=== PATIENT | female | born 1955 | race Caucasian/White ===

== ENCOUNTER 2024-06-03 14:49 | Inpatient (IN) | payer OTHER ==
[~2024-06-03] VITALS: Ht 160 cm; Wt 46.7 kg
--- NOTE | 2024-06-03 15:30 | EKG ---
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
[2024-06-03 15:33] LABS: BASOPHILS # (AUTO) 0.12 K/uL (0.00-0.20); BASOPHILS % (AUTO) 1.2 % (0.0-5.0); EOSINOPHILS # (AUTO) 0.32 K/uL (0.00-0.70); EOSINOPHILS % (AUTO) 3.1 % (0.0-8.0); HEMATOCRIT 42.1 % (36-48); IMMATURE GRANULOCYTE ABSOLUTE 0.03 K/uL (0-1); LYMPHOCYTES # (AUTO) 2.8 K/uL (1.0-4.8); LYMPHOCYTES % (AUTO) 27.1 % (21.0-51.0); MEAN CORPUSCULAR HEMOGLOBIN 30.8 pg (27.0-33.0); MEAN CORPUSCULAR HGB CONC 32.1 g/dL (32.0-36.0); MEAN CORPUSCULAR VOLUME 96.1 fL (79-99); MONOCYTES # (AUTO) 0.7 K/uL (0.1-1.0); MONOCYTES % (AUTO) 7.1 % (3.0-13.0); NEUTROPHILS # (AUTO) 6.3 K/uL (1.8-7.7); NEUTROPHILS % (AUTO) 61.2 % (40.0-77.0); PLATELET COUNT (AUTO) 240 K/uL (130-400); RED BLOOD CELL COUNT(AUTO) 4.38 MIL/uL (4.00-5.50); RED CELL DISTRIBUTION WIDTH 13.4 % (11.0-15.5); WHITE BLOOD COUNT (AUTO) 10.3 K/uL (4.8-10.8)
--- NOTE | 2024-06-03 15:40 | ERN ---
ED Note History of Present Illness Stated Complaint: ABNORMAL EKG Chief Complaint: Abnormal Labs Time Seen by MD: 15:00 Dictation: PATIENT IS A 68-YEAR-OLD FEMALE COMING IN WITH PALPITATIONS ONSET THIS MORNING. SHE WAS SEEN BY HER PRIMARY CARE DOCTOR, IDENTIFIED WITH AFIB WITH A RVR IN DIRECTED IMMEDIATELY TO THE EMERGENCY ROOM. NO CHEST PAIN NO BACK PAIN NO SOB. SHE STATES SHE HAS NEVER HAD ATRIAL FIBRILLATION. Allergies: Coded Allergies: No Known Drug Allergies (Unverified Allergy, Unknown, 06/03/24) Past Medical History Past Medical History: Diabetes-Type II, Heart Disease, Hypertension Surgical History: Other Surgical History Other: ORAL SURGERY History: Not Applicable RN Note Reviewed/Agreed w/PFSH: Yes Review of System Dictation CONSTITUTIONAL: NEGATIVE EXCEPT FOR HPI HEAD/FACE: NEGATIVE EXCEPT FOR HPI EENT: NEGATIVE EXCEPT FOR HPI RESPIRATORY: NEGATIVE EXCEPT FOR HPI PALPITATIONS GASTROINTESTINAL/ABDOMINAL: NEGATIVE EXCEPT FOR HPI GENITOURINARY: NEGATIVE EXCEPT FOR HPI MUSCULOSKELETAL: NEGATIVE EXCEPT FOR HPI INTEGUMENTARY: NEGATIVE EXCEPT FOR HPI NEUROLOGICAL/PSYCH: NEGATIVE EXCEPT FOR HPI HEMATOLOGIC/LYMPHATIC: NEGATIVE EXCEPT FOR HPI ALL SYSTEMS NEGATIVE, EXCEPT NOTED ABOVE. 13 POINT REVIEW OF SYSTEMS ASSESSED AND ALL NEGATIVE EXCEPT FOR ABOVE. Initial Vital Sign VS Vital Signs Date Time Temp Pulse Resp B/P (MAP) Pulse Ox O2 Delivery O2 Flow Rate FiO2 06/03/24 14:54 97.5 124 16 162/101 99 Room Air 06/03/24 15:22 0 21 Physical Exam Dictation VITAL SIGNS REVIEWED GENERAL APPEARANCE: ALERT, ORIENTED X 3, NO ACUTE DISTRESS, WELL DEVELOPED, NOURISHED. HEAD AND FACE: NON-TRAUMATIC. EYES: PERRL, PINK CONJUNCTIVAS, EYELID NO TRAUMA, ANTERIOR CHAMBER WITH ARCUS SENILIS. EARS: PINNAS INTACT AND NO SIGNS OF TRAUMA OR ERYTHEMA EAR CANALS CLEAR AND NO DISCHARGE TM NO ERYTHEMA NOSE: NO DISCHARGE, NO BLEEDING. OROPHARYNX: MOUTH NORMAL, TONGUE PINK, PHARYNX CLEAR,NO ERYTHEMA, TONSILS NO EXUDATES, NO ABSCESSES NOTED, MUCOUS MEMBRANE MOIST NECK: SUPPLE, NON-TENDER, NO THYROMEGALY, NO MASSES, NO JVD, NO BRUITS BREAST:DEFERRED CHEST:NO TENDERNESS, NO CREPITUS, NO PARADOXICAL MOVEMENT, NO RETRACTIONS LUNGS:CLEAR, WELL-VENTILATED, SYMMETRIC, NO RALES, NO WHEEZING, NO RHONCHI, NO STRIDOR, GOOD BREATH SOUNDS BILATERALLY HEART: IRREGULAR IRREGULAR REGULAR TACHYCARDIC, NO MURMUR, NO GALLOPS VASCULAR: NO PERIPHERAL EDEMA, ABDOMEN: SOFT, POSITIVE BOWEL SOUNDS, NONDISTENDED, NO GUARDING, NONTENDER, NO REBOUND, NO MASSES NO HEPATOMEGALY, NO SPLENOMEGALY, NO FELIX'S SIGN, NO HERNIAS. RECTAL: DEFERRED GENITAL: DEFERRED NEUROLOGICAL: NORMAL SPEECH, MOTOR FUNCTION INTACT, SENSORY FUNCTION INTACT MUSCULOSKELETAL: NECK NONTENDER, FULL RANGE OF MOTION, BACK NONTENDER, FULL RANGE OF MOTION, EXTREMITIES: NONTENDER, FULL RANGE OF MOTION SKIN: COLOR PINK, DRY, NO TURGOR, NO RASH, NO LACERATIONS, NO ABRASIONS, NO CONTUSIONS. LYMPHATIC: DEFERRED Results (Laboratory/Radiology) Laboratory/Radiology Laboratory Tests Test 06/03/24 15:25 White Blood Count 10.3 K/uL (4.8-10.8) Red Blood Count 4.38 MIL/uL (4.00-5.50) Hemoglobin 13.5 g/dL (12.0-16.0) Hematocrit 42.1 % (36-48) Mean Corpuscular Volume 96.1 fL (79-99) Mean Corpuscular Hemoglobin 30.8 pg (27.0-33.0) Mean Corpuscular Hemoglobin Concent 32.1 g/dL (32.0-36.0) Red Cell Distribution Width 13.4 % (11.0-15.5) Platelet Count 240 K/uL (130-400) Mean Platelet Volume 11.0 fL (7.5-10.5) H Immature Granulocyte % (Auto) 0.3 % (0-1) Neutrophils (%) (Auto) 61.2 % (40.0-77.0) Lymphocytes (%) (Auto) 27.1 % (21.0-51.0) Monocytes (%) (Auto) 7.1 % (3.0-13.0) Eosinophils (%) (Auto) 3.1 % (0.0-8.0) Basophils (%) (Auto) 1.2 % (0.0-5.0) Neutrophils # (Auto) 6.3 K/uL (1.8-7.7) Lymphocytes # (Auto) 2.8 K/uL (1.0-4.8) Monocytes # (Auto) 0.7 K/uL (0.1-1.0) Eosinophils # (Auto) 0.32 K/uL (0.00-0.70) Basophils # (Auto) 0.12 K/uL (0.00-0.20) Absolute Immature Granulocyte (auto 0.03 K/uL (0-1) Nucleated Red Blood Cells 0.0 % (0.0-0.19) Prothrombin Time 11.9 SEC (9.6-11.6) H Prothromb Time International Ratio 1.07 (0.85-1.15) Activated Partial Thromboplast Time 27.6 SEC (26.3-35.5) Sodium Level 138 mmol/L (136-145) Potassium Level 3.9 mmol/L (3.5-5.1) Chloride Level 103 mmol/L (101-111) Carbon Dioxide Level 29 mmol/L (21-32) Blood Urea Nitrogen 18 mg/dL (7-18) Creatinine 0.6 mg/dL (0.5-1.0) Glomerular Filtration Rate Calc 97 mL/min (>90) Random Glucose 109 mg/dL (70-105) H Total Calcium 9.4 mg/dL (8.5-10.1) Total Bilirubin 0.3 mg/dL (0.2-1.0) Aspartate Amino Transf (AST/SGOT) 13 U/L (10-37) Alanine Aminotransferase (ALT/SGPT) 13 U/L (12-78) Alkaline Phosphatase 82 U/L (50-136) Troponin I High Sensitivity 14 ng/L (4-50) B-Type Natriuretic Peptide 79 pg/mL (0-100) Total Protein 7.3 g/dL (6.0-8.3) Albumin 3.6 g/dL (3.5-5.0) Labs Reviewed?: Yes EKG Comment: Test Date: 2024-06-03 Test Time: 15:24:57 Pat Name: JOSE CARRINGTON Department: [facility] Room: Gender: Female 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 ED Course ED Course Orders Procedure Category Date Status Time Cbc With Differential LAB 06/03/24 Complete 14:58 Comprehensive LAB 06/03/24 Complete Metabolic Panel 14:58 12 Lead Ekg Tracing- EKG 06/03/24 Complete Technical 14:58 Troponin I High LAB 06/03/24 Complete Sensitivity 14:58 Pt And Ptt LAB 06/03/24 Complete 15:34 B-Type Natriuretic LAB 06/03/24 Complete Peptide 15:34 Diltiazem 25mg Inj PHA 06/03/24 Complete (Cardizem 25mg Inj) 16:00 Diltiazem 125 Mg/25 PHA 06/03/24 In Process Ml Inj (Diltiazem 12 17:00 Cardiology Consult CONPHYSVC 06/03/24 Transmitted 16:55 Metoprolol Tartrate PHA 06/03/24 In Process 50 Mg Tab (Lopressor 21:00 Heparin 25,000 PHA 06/03/24 In Process Units/250ml D5w 17:30 Current Medications Medications (Trade) Dose Ordered Sig/Ava Route PRN Reason Start Time Stop Time Status Last Admin Dose Admin Diltiazem HCl (CARDIzem 25MG INJ) 9.44 mg ONCE ONCE IVP 06/03/24 16:00 06/03/24 16:01 DC 06/03/24 15:52 Diltiazem HCl 125 mg/Sodium Chloride 125 ml @ 0 mls/hr PROTOCOL IV 06/03/24 17:00 07/03/24 16:59 Heparin Sodium/ Dextrose 250 ml @ 0 mls/hr PROTOCOL IV 06/03/24 17:30 07/03/24 17:29 Metoprolol Tartrate (loprESSOR) 50 mg BID PO 06/03/24 21:00 07/03/24 20:59 Vital Signs Date Time Temp Pulse Resp B/P (MAP) Pulse Ox O2 Delivery O2 Flow Rate FiO2 06/03/24 16:34 97.5 136 18 124/82 99 Room Air* 0 06/03/24 16:00 97.5 104 14 124/82 99 Room Air* 0 21 06/03/24 15:56 97.5 115 16 124/82 99 Room Air* 0 21 06/03/24 15:52 150/80 06/03/24 15:22 144 20 171/111 94 Room Air* 0 21 06/03/24 14:54 97.5 124 16 162/101 99 Room Air 1607 PATIENT NOW IN A ATRIAL FIBRILLATION WITH A CONTROLLED RATE VENTRICULAR RESPONSE ANYWHERE SIXTEEN 50, PATIENT NOW BACK IN ATRIAL FIBRILLATION WITH RAPID VENTRICULAR RESPONSE WORKUP IS NEGATIVE EXCEPT FOR AFIB RVR SHE WILL BE STARTED ON DILTIAZEM DRIP AND WE WILL PAGED DR. WILLIAM DENNIS [employer] AND HAVE PATIENT ADMITTED S.1706/SPOKE WITH DR. WILLIAM DENNIS [employer] AND REVIEWED EKG LABS. HE SAID TO GIVE HER LOPRESSOR5 MG IV NOW AND GIVE, LOPRESSOR 50 MG B.I.D. AND START HEPARIN DRIP. HE AGREED TO SEE PATIENT IN CONSULTATION. 1720/SPOKE WITH DR. BRODERICK AND REVIEWED LABS EKG CHEST X-RAY AND INTERVENTIONS FOR AFIB WITH A RVR TO INCLUDE 1ST DOSE OF DILTIAZEM WHICH FAILED, THEN SPEAKING WITH DR. DENNIS WE WILL GIVE LOPRESSOR5 MG, LOPRESSOR 50 MG B.I.D., WE WILL START HEPARIN DRIP. HE AGREED TO ADMIT PATIENT. Medical Decision Making MDM MDM: DIFFERENTIAL DIAGNOSIS: AFIB WITH A RVR/ACS/AMI/ELECTROLYTE IMBALANCE/DEHYDRATION/PNEUMONIA RATIONALE: TESTS CONSIDERED AND ORDERED SECONDARY TO SHARED DECISION MAKING INCLUDE: LABS, ECG AND RADIOLOGY PREVIOUS OUTSIDE RECORDS REVIEWED: OLD ER VISITS. RISK OF COMPLICATION AND/OR MORBIDITY OR MORTALITY OF PATIENT MANAGEMENT: MODERATE MEDICATIONS-PER MEDICATION RECONCILIATION NEED FOR HOSPITALIZATION: PATIENT DOES MEET CRITERIA FOR HOSPITALIZATION. PATIENT WILL NEED CARDIOLOGY CONSULTATION AND CONTROL OF HER ATRIAL FIBRILLATION NEED FOR EMERGENCY MAJOR/MINOR SURGERY: NO THERE ARE NO SOCIAL CONCERNS WITH THIS PATIENT. PRESCRIPTION DRUG MANAGEMENT PRESCRIPTIONS WILL INCLUDE SYMPTOMATIC CARE PATIENT'S PRIOR EXTERNAL MEDICAL RECORDS FROM OTHER ER VISITS WERE REVIEWED BY ME INDICATED. PRIOR TESTING AND RESULTS FROM PREVIOUS VISITS WERE REVIEWED. PRIOR TESTS WERE TAKEN INTO ACCOUNT WITH MEDICAL DECISION MAKING AND RESOURCE UTILIZATION, INDEPENDENT HISTORIAN/HISTORIANS WERE USED TO OBTAIN COMPLETE MEDICAL HISTORY. I INDEPENDENTLY INTERPRETED THE TEST THAT WERE PERFORMED, RESULTS WERE REVIEWED BY ME AND CONSIDERED FINDINGS ON RADIOLOGY IF ORDERED. MEDICAL MANAGEMENT AND EXAMINATION INTERPRETATION DISCUSSIONS WERE HAD BY ME WITH OTHER QUALIFIED HEALTHCARE PROFESSIONALS INDICATED FOR THE PATIENT'S CARE. DX & DISP Disposition: Inpatient Departure Impression: Primary Impression: Atrial fibrillation with rapid ventricular response Additional Impression: Hyperglycemia Condition: Stable Referrals: MOUNIKA REEDER MD (PCP) Time of Disposition: 16:56 I have reviewed the case, and I agree with, Diagnosis and Plan CARINE CORDOBA NP Jun 03, 2024 15:40
[2024-06-03 15:43] LABS: CREATININE 0.6 mg/dL (0.5-1.0); POTASSIUM 3.9 mmol/L (3.5-5.1)
[2024-06-03] MEDS: dilTIAZem 25MG INJ IVP ONE (15:52)
[2024-06-03 15:53] LABS: ALBUMIN 3.6 g/dL (3.5-5.0); BILIRUBIN,TOTAL 0.3 mg/dL (0.2-1.0); TOTAL PROTEIN, SERUM 7.3 g/dL (6.0-8.3)
[2024-06-03 16:15] LABS: INR 1.07 (0.85-1.15); PROTHROMBIN TIME 11.9 SEC (9.6-11.6)
[2024-06-03 16:17] LABS: PARTIAL THROMBOPLASTIN TIME 27.6 SEC (26.3-35.5)
[2024-06-03] MEDS ORDERED: dilTIAZem 125 MG/25 ML INJ 125 MG in 0.9%NACL 100ML 100 ML IV SCH (17:00)
[2024-06-03] MEDS: metoPROLOL tartRATE 50 MG TAB PO SCH (17:29)
[2024-06-03] MEDS: HEParin 25,000 UNITS/250ML D5W 250 ML IV SCH (17:43)
[2024-06-03] MEDS: metoPROLOL tartRATE 1 MG/ML 5ML VIAL IV ONE (17:52)
[2024-06-03] MEDS: HEParin 5,000 UNIT VIAL SQ SCH (17:53)
[2024-06-03] MEDS ORDERED: PoTASSium chloRIDE 20MEQ/100ML 100 ML IV PRN (18:00)
[2024-06-03] MEDS ORDERED: PoTASSium chloRIDE 20MEQ ER 20 MEQ ERTAB PO PRN (18:00)
[2024-06-03] MEDS ORDERED: PoTASSium chl 10% ELIXIR 20MEQ 20 MEQ/15 ML UDCUP PO PRN (18:00)
[2024-06-03] MEDS ORDERED: acetaMINOPHEN 500 MG TABLET PO PRN (18:00)
[2024-06-03 18:21] LABS: HEMOGLOBIN A1C 6.2 % (4.0-6.0)
--- NOTE | 2024-06-03 18:47 | NUR ---
HOLD CARDIZEM IV BAG NOW, FIRST TRY LOPRESSOR MEDICATION FIRST, CONTINE TO MONITOR HEART RATE. PER CARINE Kelly NP
--- NOTE | 2024-06-03 19:10 | HP ---
[facility] HISTORY [facility] PHYSICAL Date of Service: Jun 03, 2024 Time of Service: 19:00 HISTORY OF PRESENT ILLNESS: Date of service: 06/03/2024 This is a 68-year-old female with past medical history of hyperlipidemia, diabetes mellitus type 2 presented to the hospital secondary to palpitations. Patient states she noted that she was having palpitations today. She went to see her primary care provider where she was noted to be in AFib RVR. She was sent to hospital for further evaluation. Patient currently denies any chest pain, shortness of breath, nausea, vomiting, abdominal pain, dysuria. She denied any previous history of palpitations. Denied any syncopal episode at rest or with exertion. She denied any previous cardiac history. He denied any headaches, neck pain. Denied any upper or lower extremity weakness. In the ED labs were notable for white count of 10.3, hemoglobin was 13.5, platelet count was 240k, sodium was 138, potassium was 3.9, creatinine was 0.6, glucose was 109 In the ED patient was noted to be in AFib RVR with heart rate in the 130s to 140s. Patient was initially given Cardizem without improvement. ED provider yue valencia to Cardiology who recommended given IV metoprolol 5 mg, starting patient on metoprolol 50 mg b.i.d. Also recommended patient to be started on heparin gtt REVIEW OF SYSTEMS CONSTITUTIONAL: Denies fevers, chills, or night sweats. No unintentional weight loss reported. NEUROLOGICAL: Denies headache, amaurosis fugax, motor weakness, sensory deficit, vertigo/spinning sensation, gait abnormalities, or tremors. ENT: No hearing loss, otalgia, otorrhea, rhinitis, rhinorrhea, hoarseness, or sore throat. CARDIOVASCULAR: Positive for palpitations. Denied any chest pain, orthopnea, PND PULMONARY: Denies any shortness of breath, cough, phlegm/sputum, hemoptysis, pleuritic chest pain. GASTROINTESTINAL: Denies any type of dysphagia to either liquids or solids. Denies nausea, vomiting, pyrosis, early satiety, abdominal pain, diarrhea, constipation, or changes in stool consistency or caliber. Denies coffee-ground emesis, hematemesis, hematochezia, or melanotic stools. GENITOURINARY: Denies frequency, urgency, nocturia, hematuria or incontinence (Storage/Irritative symptoms.) Low urinary stream, straining to void, urinary intermittency or hesitancy, splitting of the voiding stream, terminal dribbling. ENDOCRINOLOGIC: Denies polyuria, polydipsia, polyphagia or heat/cold intolerances. HEMATOLOGIC: Denies thrombophilia/previous clots, or coagulopathy/bleeding disorders. ONCOLOGIC: Denies personal history of malignancy. DERMATOLOGIC: Denies rashes or pruritus. PSYCHIATRIC: Denies any suicidal or homicidal ideation. Denies hallucinations. PAST MEDICAL HISTORY: Hyperlipidemia, diabetes mellitus type 2 PAST SURGICAL HISTORY: History of oral surgery PAST SOCIAL HISTORY: Denied any smoking, alcohol, drug use FAMILY HISTORY: Denied any pertinent family history Coded Allergies: No Known Drug Allergies (Unverified Allergy, Unknown, 06/03/24) PHYSICAL EXAM GENERAL APPEARANCE: The patient is awake, alert, and oriented, in no acute cardiopulmonary distress. NEUROLOGICAL: Cranial nerves II-XII grossly intact. Motor is 5/5 in bilateral upper and lower extremities proximal to distal. No sensory deficits. HEENT: Face is symmetric. Pupils are equal and reactive. Extraocular movements are intact. NECK: Supple. No JVD. No thyromegaly. No submental, submandibular, pre-/postauricular, occipital or supraclavicular lymphadenopathy. CHEST: Normal chest expansion. No Telemetry. LUNGS: Absence of any rales, rhonchi or any wheezing. CARDIOVASCULAR: Irregularly irregular. S1 and S2 normal. No appreciable rubs, murmurs or gallops. ABDOMEN: Soft, nontender, and nondistended. There is no rebound, voluntary guarding, or rigidity. : Deferred. No Marquez. EXTREMITIES: Non-edematous and not cyanotic. No clubbing. Good capillary refill. SKIN: No skin breakdown. Vital Sign (Last 24 Hours) 06/03/24 18:47 Temp 97.5 Pulse 89 Resp 25 B/P (MAP) 114/88 Pulse Ox 97 O2 Delivery Room Air* O2 Flow Rate 0 FiO2 21 LABS: Laboratory: Test 06/03/24 15:25 Range/Units White Blood Count 10.3 4.8-10.8 K/uL Red Blood Count 4.38 4.00-5.50 MIL/uL Hemoglobin 13.5 12.0-16.0 g/dL Hematocrit 42.1 36-48 % Mean Corpuscular Volume 96.1 79-99 fL Mean Corpuscular Hemoglobin 30.8 27.0-33.0 pg Mean Corpuscular Hemoglobin Concent 32.1 32.0-36.0 g/dL Red Cell Distribution Width 13.4 11.0-15.5 % Platelet Count 240 130-400 K/uL Mean Platelet Volume 11.0 H 7.5-10.5 fL Immature Granulocyte % (Auto) 0.3 0-1 % Neutrophils (%) (Auto) 61.2 40.0-77.0 % Lymphocytes (%) (Auto) 27.1 21.0-51.0 % Monocytes (%) (Auto) 7.1 3.0-13.0 % Eosinophils (%) (Auto) 3.1 0.0-8.0 % Basophils (%) (Auto) 1.2 0.0-5.0 % Neutrophils # (Auto) 6.3 1.8-7.7 K/uL Lymphocytes # (Auto) 2.8 1.0-4.8 K/uL Monocytes # (Auto) 0.7 0.1-1.0 K/uL Eosinophils # (Auto) 0.32 0.00-0.70 K/uL Basophils # (Auto) 0.12 0.00-0.20 K/uL Absolute Immature Granulocyte (auto 0.03 0-1 K/uL Nucleated Red Blood Cells 0.0 0.0-0.19 % Prothrombin Time 11.9 H 9.6-11.6 SEC Prothromb Time International Ratio 1.07 0.85-1.15 Activated Partial Thromboplast Time 27.6 26.3-35.5 SEC Sodium Level 138 136-145 mmol/L Potassium Level 3.9 3.5-5.1 mmol/L Chloride Level 103 101-111 mmol/L Carbon Dioxide Level 29 21-32 mmol/L Blood Urea Nitrogen 18 7-18 mg/dL Creatinine 0.6 0.5-1.0 mg/dL Glomerular Filtration Rate Calc 97 >90 mL/min Random Glucose 109 H 70-105 mg/dL Hemoglobin A1c 6.2 H 4.0-6.0 % Estimated Average Glucose (eAG) 131 H 70-126 mg/dL Total Calcium 9.4 8.5-10.1 mg/dL Total Bilirubin 0.3 0.2-1.0 mg/dL Aspartate Amino Transf (AST/SGOT) 13 10-37 U/L Alanine Aminotransferase (ALT/SGPT) 13 12-78 U/L Alkaline Phosphatase 82 50-136 U/L Troponin I High Sensitivity 14 4-50 ng/L B-Type Natriuretic Peptide 79 0-100 pg/mL Total Protein 7.3 6.0-8.3 g/dL Albumin 3.6 3.5-5.0 g/dL Procalcitonin < 0.05 L 0.05-0.5 ng/mL Thyroid Stimulating Hormone (TSH) 3.27 0.36-3.74 uIU/mL Current Medications Medications (Trade) Dose Ordered Sig/Ava Route PRN Reason Start Time Stop Time Status Last Admin Dose Admin Acetaminophen (TYLenol 500MG TAB) 500 mg Q6H PRN PO MILD PAIN (1-3) 06/03/24 18:00 07/03/24 17:59 Diltiazem HCl 125 mg/Sodium Chloride 125 ml @ 0 mls/hr PROTOCOL IV 06/03/24 17:00 07/03/24 16:59 Famotidine (Pepcid 20mg Vial) 20 mg BID IV 06/03/24 21:00 07/03/24 20:59 Heparin Sodium (Porcine) (HEParin 5,000 UNIT VIAL) 7,500 unit ONCE SQ 06/03/24 18:00 07/03/24 17:59 06/03/24 17:53 7,500 UNIT Heparin Sodium/ Dextrose 250 ml @ 0 mls/hr PROTOCOL IV 06/03/24 17:30 07/03/24 17:29 06/03/24 17:43 8 MLS/HR Magnesium Sulfate 50 ml @ 0 mls/hr PROTOCOL PRN IV HYPOMAGNESEMIA 06/03/24 18:00 07/03/24 17:59 Metoprolol Tartrate (loprESSOR) 50 mg BID PO 06/03/24 17:30 07/03/24 17:29 06/03/24 17:29 50 MG Metoprolol Tartrate (loprESSOR) 50 mg BID PO 06/03/24 21:00 06/03/24 17:24 DC Potassium Chloride 100 ml @ 100 mls/hr AD PRN IV POTASSIUM PROTOCOL 06/03/24 18:00 07/03/24 17:59 Potassium Chloride (K-Dur/Klor-Con 20meq) 20 meq AD PRN PO POTASSIUM PROTOCOL 06/03/24 18:00 07/03/24 17:59 Potassium Chloride (KCl 10% Elixir 20meq/15ml) 20 meq AD PRN PO POTASSIUM PROTOCOL 06/03/24 18:00 07/03/24 17:59 DIAGNOSTICS / RADIOLOGY: [ ] ASSESSMENT: New onset paroxysmal atrial fibrillation with RVR POA CHADSVASC of at least 3 Hyperlipidemia History of diabetes mellitus type 2 PLAN: - patient to be admitted to PCCU -in reference to atrial fibrillation with RVR. Patient has been started on metoprolol 50 mg b.i.d. we will keep potassium greater than four and magnesium greater than two. Cardiology consultation was requested. Patient to continue on heparin drip gtt. Obtain a echocardiogram -check TSH, A1c -obtain home medications which will be reconciled once available -further orders per hospitalization course Advanced Care Planning Which of the following were discussed: Hospice care: Yes __ No _x_ Therapeutic options: Yes __ No __ Advance directives: Yes __ No __ Other discussions: pt is full code Discussed with who?: patient (Patient, family or surrogates) Voluntary nature of this service was explained to the patient? Yes _x_ No __ Amount of time spent: 25 minutes CAROLYN Shook MD, MD Jun 03, 2024 19:09
--- NOTE | 2024-06-03 19:14 | NUR ---
TOOK OVER PATIENT AT THIS TIME
--- NOTE | 2024-06-03 20:38 | NUR ---
NO HOME MEDICATIONS BROUGHT IN AT THIS TIME, PATIENT WILL HAVE FAMILY BRING THEM IN THE MORNING
[2024-06-03 20:50] VITALS: BP 128/69; PULSE 63; RESP 19; TEMP 97.8
[2024-06-03] MEDS ORDERED: metoPROLOL tartRATE 50 MG TAB PO SCH (21:00)
[2024-06-03] MEDS: INSULIN humuLIN R 100 UNIT/ML 3ML SQ SCH (21:00)
--- NOTE | 2024-06-03 21:00 | NUR ---
INITIAL ASSESSMENT PATIENT RECEIVED FROM ER VIA STRETCHER. PATIENT BEING ADMITTED FOR AFIB WITH RVR AND HYPERGLYCEMIA UNDER THE CARE OF . PATIENT AWAKE AND ALERT. VOICES ALL NEEDS. NO COMPLAINTS OF PAIN VOICED AT THIS TIME. VITALS STABLE. AFEBRILE. TOLERATING HEPARIN GTT AT THIS TIME. GAME ROOM ATTENDANT IN PLACE. PATIENT CONTINUES WITH AFIB IN THE 80s. RESP EVEN AND UNLABORED. NO SOB NOTED. ON ROOM AIR. ORIENTATED TO ROOM AND HOSPITAL. NO SKIN BREAKDOWN NOTED. IN GOOD SPIRITS. CALL LIGHT WITHIN REACH. NO SIGNS OF DISTRESS NOTED UPON EXITING THE ROOM. Addendum: 06/04/24 at 0735 by GRZEGORZ DAVIS RN RN Amended: Links added.
[2024-06-03] MEDS ORDERED: METF-446 PO (22:28)
[2024-06-03] MEDS ORDERED: ATOR10TA69 PO (22:28)
[2024-06-03] MEDS: FAMOTIDINE 20MG VIAL IV SCH (23:16)
[2024-06-04] VITALS (10 sets, daily range): BP systolic 124–148; BP diastolic 75–94; PULSE 67–97; RESP 16–19; TEMP 97.4–98.3; O2SAT 97–98
[2024-06-04 03:26] LABS: CREATININE 0.7 mg/dL (0.5-1.0); MAGNESIUM 1.6 mg/dL (1.80-2.40); POTASSIUM 3.9 mmol/L (3.5-5.1)
[2024-06-04 03:29] LABS: BASOPHILS # (AUTO) 0.13 K/uL (0.00-0.20); BASOPHILS % (AUTO) 1.1 % (0.0-5.0); EOSINOPHILS # (AUTO) 0.45 K/uL (0.00-0.70); EOSINOPHILS % (AUTO) 3.7 % (0.0-8.0); IMMATURE GRANULOCYTE ABSOLUTE 0.02 K/uL (0-1); LYMPHOCYTES # (AUTO) 4.3 K/uL (1.0-4.8); LYMPHOCYTES % (AUTO) 34.8 % (21.0-51.0); MEAN CORPUSCULAR HGB CONC 32.5 g/dL (32.0-36.0); MEAN CORPUSCULAR VOLUME 95.2 fL (79-99); MONOCYTES # (AUTO) 0.9 K/uL (0.1-1.0); MONOCYTES % (AUTO) 7.3 % (3.0-13.0); NEUTROPHILS # (AUTO) 6.5 K/uL (1.8-7.7); NEUTROPHILS % (AUTO) 52.9 % (40.0-77.0); PLATELET COUNT (AUTO) 255 K/uL (130-400); RED CELL DISTRIBUTION WIDTH 13.4 % (11.0-15.5); WHITE BLOOD COUNT (AUTO) 12.3 K/uL (4.8-10.8)
--- NOTE | 2024-06-04 08:00 | NUR ---
ptt 113.8. heparin drip running at 15 u/kg/hr. held for 1 hour then dropped to 13 units/kg/hr.
[2024-06-04] MEDS: metoPROLOL tartRATE 50 MG TAB PO SCH (09:00)
[2024-06-04] MEDS: APIXaban 5 MG TABLET PO SCH (10:42)
--- NOTE | 2024-06-04 10:57 | CONS ---
[facility] CONSULTATION NOTE Date Patient Seen: Jun 04, 2024 Time of Visit: 10:43 Reason for Consultation: [Atrial fibrillation ] History of Present Illness: [ 68-year-old female with past medical history of hyperlipidemia, recently diagnosed diabetes mellitus type 2 presented to the hospital secondary to palpitations. Patient states she noted that she was having palpitations today. She went to see her primary care provider where she was noted to be in AFib RVR. She was sent to hospital for further evaluation. On initial evaluation the patient was endorsing mild jitteriness and feeling faint , she denies any palpitations , chest pain or dyspnea, presenting ECG showed Afib with RVR in the 120-130s , telemetry currently shows atrial fibrillation , in the low 100s , she denies any prior history of SC/CAD/stroke , never smoker , no alcohol use. Cardiology was consulted for Atrial fibrillation. ] Past Medical History: [Refer to chart ] Past Surgical History: [ Refer to HPI] Family History: [Refer to HPI ] Social History: [ Refer to HPI] Habits: [Never] smoker. [Denies] alcohol consumption. [Denies] illicit drug use Review of Systems: A review of 12 point system was negative set per HPI Physical Examination: GENERAL: [No acute distress.] HEAD: [Normal with no signs of head trauma.] EYES: [PERRLA, EOMI, conjunctiva and sclera normal.] ENT: [Hearing grossly intact, normal oropharynx.] NECK: [Supple without JVD. There is no tenderness, lymphadenopathy, or masses. No thyromegaly. Normal carotid upstrokes without bruits.] LUNGS: [Clear breath sounds bilaterally. . No wheezes, or rhonchi.] HEART: Irregularly irregular rate. Normal S1 and S2 without mumurs, gallop or rub.] VASC: [Peripheral pulses +2 bilaterally.] ABD: [Bowel sounds normal, soft, nontender, no masses, no organomegaly. No audible bruits.] : [Not examined] LYMPH: [No lymphadenopathy noted.] EXT: [No clubbing, cyanosis or edema.] SKIN: [No rashes or lesions noted.] NEURO: [Awake, alert, and oriented x3. No focal sensory or strength deficits noted.] Vital Signs (last 8hr) Date Time Temp Pulse Resp B/P (MAP) Pulse Ox O2 Delivery O2 Flow Rate FiO2 06/04/24 08:03 97.9 93 19 143/92 99 Room Air 06/04/24 03:47 97.5 67 18 135/90 98 Room Air 06/04/24 03:47 97.5 67 18 135/90 98 Room Air Laboratory: [ ] Hematology Labs: Test 06/04/24 00:36 Range/Units White Blood Count 12.3 H 4.8-10.8 K/uL Red Blood Count 4.20 4.00-5.50 MIL/uL Hemoglobin 13.0 12.0-16.0 g/dL Hematocrit 40.0 36-48 % Mean Corpuscular Volume 95.2 79-99 fL Mean Corpuscular Hemoglobin 31.0 27.0-33.0 pg Mean Corpuscular Hemoglobin Concent 32.5 32.0-36.0 g/dL Red Cell Distribution Width 13.4 11.0-15.5 % Platelet Count 255 130-400 K/uL Mean Platelet Volume 12.6 H 7.5-10.5 fL Immature Granulocyte % (Auto) 0.2 0-1 % Neutrophils (%) (Auto) 52.9 40.0-77.0 % Lymphocytes (%) (Auto) 34.8 21.0-51.0 % Monocytes (%) (Auto) 7.3 3.0-13.0 % Eosinophils (%) (Auto) 3.7 0.0-8.0 % Basophils (%) (Auto) 1.1 0.0-5.0 % Neutrophils # (Auto) 6.5 1.8-7.7 K/uL Lymphocytes # (Auto) 4.3 1.0-4.8 K/uL Monocytes # (Auto) 0.9 0.1-1.0 K/uL Eosinophils # (Auto) 0.45 0.00-0.70 K/uL Basophils # (Auto) 0.13 0.00-0.20 K/uL Absolute Immature Granulocyte (auto 0.02 0-1 K/uL Nucleated Red Blood Cells 0.0 0.0-0.19 % Chemistry Labs: Test 06/04/24 05:24 06/04/24 00:36 06/03/24 15:25 Range/Units Whole Blood Glucose 111 H 70-110 MG/DL Sodium Level 138 136-145 mmol/L Potassium Level 3.9 3.5-5.1 mmol/L Chloride Level 103 101-111 mmol/L Carbon Dioxide Level 31 21-32 mmol/L Blood Urea Nitrogen 19 H 7-18 mg/dL Creatinine 0.7 0.5-1.0 mg/dL Glomerular Filtration Rate Calc 94 >90 mL/min Random Glucose 138 H 70-105 mg/dL Total Calcium 9.5 8.5-10.1 mg/dL Magnesium Level 1.60 L 1.80-2.40 mg/dL Hemoglobin A1c 6.2 H 4.0-6.0 % Estimated Average Glucose (eAG) 131 H 70-126 mg/dL Total Bilirubin 0.3 0.2-1.0 mg/dL Aspartate Amino Transf (AST/SGOT) 13 10-37 U/L Alanine Aminotransferase (ALT/SGPT) 13 12-78 U/L Alkaline Phosphatase 82 50-136 U/L Troponin I High Sensitivity 14 4-50 ng/L B-Type Natriuretic Peptide 79 0-100 pg/mL Total Protein 7.3 6.0-8.3 g/dL Albumin 3.6 3.5-5.0 g/dL Procalcitonin < 0.05 L 0.05-0.5 ng/mL Thyroid Stimulating Hormone (TSH) 3.27 0.36-3.74 uIU/mL Coagulation Labs: Test 06/04/24 07:37 06/03/24 15:25 Range/Units Activated Partial Thromboplast Time 113.8 *H 26.3-35.5 SEC Prothrombin Time 11.9 H 9.6-11.6 SEC Prothromb Time International Ratio 1.07 0.85-1.15 Diagnostics / Radiology: [Copy/Paste Echos/Imaging Report here] Assessment: [Atrial fibrillation with RVR CHADsVAsC of 3 Type 2 diabetes mellitus Hyperlipidemia ] Plan: [# Atrial fibrillation with RVR CHADsVAsC of 3 The patient was initially seen by her PCP due to ongoing palpitations At that time she was found tachycardic and atrial fibrillation was noted She was refered to [facility] for further evaluation Upon arrival her ECG showed a-fib with RVR in the 120-130s Review of telemetry shows ongoing a-fib in the low 100s The patient currently denies any chest pain , palpitations or dyspnea She was initially started on heparin drip Due to her elevated CHADsVAsC we will stop heparin and transition to Eliquis 5 mg every 12 hours. Continue Lopressor 50 mg every 12 hours , if rate remains uncontrolled we will increase to Lopressor 50 mg every 8 hours Keep on telemetry, monitor / replace electrolytes as needed We will order a formal 2Dechocardiogram to assess systolic and valvular function Thank you fot this consult , cardiology will continue to follow along , formal recommendations pending 2Dechcoardiogram results ATTESTATION BY PHYSICIAN I have seen and examined the patient, reviewed the above documentation, participated in medical decision making, made necessary modifications, and agree with the treatment plan as documented by my mid-level provider above. MD JEANNIE Jameson JAMES R MD Jun 04, 2024 10:57
--- NOTE | 2024-06-04 11:00 | NUR ---
blood glucose 144. no insulin coverage at this time.
--- NOTE | 2024-06-04 11:46 | NUR ---
Nutrition consult per PCM eval Reviewed labs, notes, and medications. Wt via standing scale, last BM 06/03/24, no edema, no wounds noted per nursing. Pt on 75 gm cho, IV fluid, A1C 6.2, elevated bun 19, Cr WNL, hyperglycemia 111, hypomagnesemia 1.60 per chart review. Family in room during visit. Pt reported NKFA, PO intake of 75-100%, no BM today, last BM 06/03/24, denied N/V, does not know her UBW, sees PCP every 3 months, no MVI, does not like coffee or tea, wants milk w/ oatmeal, no cauliflower or broccoli, agreeable to glucerna bid w/ am and dinner tray. internal specialist present during visit. Performed NFPE during visit, mild muscle loss in interosseous, clavicle, gastrocnemius regions and mild fat loss in orbital buccal regions. Pt with non-severe PCM, Supplement thiamin 100 mg/day for 5-7 days + MVI QD for at least 10 days Recommendations: -Provide lowfat diet + 75 gm cho + glucerna bid w/ am and dinner -Monitor PO intake -Encourage PO intake as able -Monitor BM -If no BM >3 days consider stool softener -Monitor electrolytes -Replenish electrolytes per protocol -Monitor wts -Reweigh as able -Order Vit D, vit b-12, vit A, fatty acid labs to rule out deficiencies -Provide b-complex QD -Recommend Pt to follow up with PCP -Monitor goals of care RD to follow + available for consult per protocol Addendum: 06/04/24 at [address] Amended: Links added.
--- NOTE | 2024-06-04 12:01 | HMCSR ---
APPROVED REPORT EXAM: Two-dimensional and M-mode echocardiogram with Doppler and color Doppler. INDICATION ICD: Atrial Fibrillation 2D Dimensions RVDd3.5 cmLVEF(%)48.9 (>50%)LVED Vol(simp.)71.0 mL IVSd0.7 (0.7-1.1cm)FS(%)24 %LVES Vol(simp.)33.0 mL LVDd4.1 (3.8-5.6cm)LA (2D)2.9 (1.6-4.0cm)LVEF(%, simp.)54 % PWd0.9 (0.7-1.1cm)Ao Root(2D)2.9 (2.0-3.7cm)LA ESV INDEX (4CH)24.10 mL/m2 IVSs1.2 cmLVOT diam1.8 (1.8-2.4cm)LA ESV INDEX (2CH)35.20 mL/m2 LVDs3.1 (2.5-4.0cm)IVC diam1.1 cmLA ESV INDEX (BP)29.00 mL/m2 PWs1.2 cm M-Mode Dimensions EPSS0.6 cm LA (MM)2.7 (1.6-4.0cm) Ao Root(MM)2.7 (2.0-3.7cm) Aortic Valve AoV VTI0.3 mAo Mean GR5.0 mmHgLVOT VTI0.13 m LURDES (VMAX)1.1 cm2AVA (VTI) 1.1 cm2 Mitral Valve MV E Vmax97.2 cm/sDECEL Xxks495 ms MV A Vmax34.6 cm/sP 1/2 T49 ms E/A ratio2.8MVA (PHT)4.5 cm2 MR Max PG108 mmHg TDI E/E' Swqcxx25.1E/E' Lateral9.1 Medial E' Peak V8.00 cm/sLateral E' Peak V10.70 cm/s Tricuspid Valve TR Vmax2.3 m/sRAP (EST) 3 neFoMITA72.0 mmHg TR Peak GR21.0 mmHg Left Ventricle Left ventricular cavity size is normal. There is normal LV segmental wall motion. There is normal lef t ventricular wall thickness. LVEF is 50-55%. Indeterminate diastolic dysfunction. Right Ventricle The right ventricle is normal size. The right ventricular systolic function is normal. Atria The left atrium size is normal. The right atrium size is normal. Aortic Valve The aortic valve is normal in structure and function. No aortic regurgitation is present. There is no aortic valvular stenosis. Mitral Valve The mitral valve is mildly thickened. Mitral valve leaflets open well. Mitral regurgitation is mild t o moderate. There is no mitral valve stenosis. Tricuspid Valve The tricuspid valve leaflets are mildly thickened. There is moderate tricuspid valve regurgitation no sherif. Pulmonic Valve The pulmonary valve is normal in structure and function. There is no pulmonic valvular regurgitation. Great Vessels The aortic root is normal in size. The IVC is normal in size and collapses >50% with inspiration. Pericardium No pericardial effusion. Conclusion LVEF is 50-55%. Mitral regurgitation is mild to moderate. There is moderate tricuspid valve regurgitation noted.
--- NOTE | 2024-06-04 14:00 | NUR ---
discontinued heparin drip as per orders.
--- NOTE | 2024-06-04 16:30 | NUR ---
BLOOD GLUCOSE AT 142. NO INSULIN COVERAGE NEEDED AT THIS TIME.
--- NOTE | 2024-06-04 18:06 | PN ---
[facility] PROGRESS NOTE Date of Service: Jun 04, 2024 Time of Service: 1300 SUBJECTIVE: The patient is a 68-year-old female with a medical history of hyperlipidemia and type 2 diabetes mellitus presented to the emergency department with the chief complaints of palpitations lasting for 2 days. During 3 month follow-up visit with her primary care physician, an EKG revealed atrial fibrillation with rapid ventricular response, with pulse rates in the 130s and 140s. In the emergency department, labs were nonsignificant and cardiac enzymes were negative. She received Cardizem, but there was no improvement. Following cardiology recommendations, she was treated with Metoprolol 5 mg IV and subsequently started on Metoprolol 50 mg BID. Additionally, she was placed on a Heparin drip. The patient has been admitted to the medical-surgical floor under telemetry for the management of atrial fibrillation with rapid ventricular response. 06/04/2024: The patient was examined at her bedside with her sister present. She was lying comfortably in bed and currently denied any symptoms of palpitations, chest pain, or shortness of breath. Her sister noted that atrial fibrillation runs in the family. The patient is currently in atrial fibrillation with a pulse rate in the early 100s. According to cardiology consultations, the Heparin drip will be discontinued, and she will be started on Eliquis 5 mg every 12 hours, along with continuing Metoprolol 50 mg BID. The patient will be closely monitored in telemetry, following cardiology recommendations. REVIEW OF SYSTEMS CONSTITUTIONAL: Denies fevers, chills, or night sweats. No unintentional weight loss reported. NEUROLOGICAL: Denies headache, amaurosis fugax, motor weakness, sensory deficit, vertigo/spinning sensation, gait abnormalities, or tremors. ENT: No hearing loss, otalgia, otorrhea, rhinitis, rhinorrhea, hoarseness, or sore throat. CARDIOVASCULAR: Positive for palpitations. Denied any chest pain, orthopnea, PND PULMONARY: Denies any shortness of breath, cough, phlegm/sputum, hemoptysis, pleuritic chest pain. GASTROINTESTINAL: Denies any type of dysphagia to either liquids or solids. Denies nausea, vomiting, pyrosis, early satiety, abdominal pain, diarrhea, constipation, or changes in stool consistency or caliber. Denies coffee-ground emesis, hematemesis, hematochezia, or melanotic stools. GENITOURINARY: Denies frequency, urgency, nocturia, hematuria or incontinence (Storage/Irritative symptoms.) Low urinary stream, straining to void, urinary intermittency or hesitancy, splitting of the voiding stream, terminal dribbling. ENDOCRINOLOGIC: Denies polyuria, polydipsia, polyphagia or heat/cold intolerances. HEMATOLOGIC: Denies thrombophilia/previous clots, or coagulopathy/bleeding disorders. ONCOLOGIC: Denies personal history of malignancy. DERMATOLOGIC: Denies rashes or pruritus. PSYCHIATRIC: Denies any suicidal or homicidal ideation. Denies hallucinations. PHYSICAL EXAM GENERAL APPEARANCE: The patient is awake, alert, and oriented, in no acute cardiopulmonary distress. NEUROLOGICAL: Cranial nerves II-XII grossly intact. Motor is 5/5 in bilateral upper and lower extremities proximal to distal. No sensory deficits. HEENT: Face is symmetric. Pupils are equal and reactive. Extraocular movements are intact. NECK: Supple. No JVD. No thyromegaly. No submental, submandibular, pre- /postauricular, occipital or supraclavicular lymphadenopathy. CHEST: Normal chest expansion. No Telemetry. LUNGS: Absence of any rales, rhonchi or any wheezing. CARDIOVASCULAR: Irregularly irregular. S1 and S2 normal. No appreciable rubs, murmurs or gallops. ABDOMEN: Soft, nontender, and nondistended. There is no rebound, voluntary guarding, or rigidity. : Deferred. No Marquez. EXTREMITIES: Non-edematous and not cyanotic. No clubbing. Good capillary refill. SKIN: No skin breakdown. Vital Signs (last 8hr) Date Time Temp Pulse Resp B/P (MAP) Pulse Ox O2 Delivery O2 Flow Rate FiO2 06/04/24 16:12 98.2 97 19 125/94 98 Room Air 06/04/24 11:23 97.3 96 16 148/77 98 Room Air LABS: Laboratory: Test 06/04/24 15:53 06/04/24 07:37 06/04/24 00:36 06/03/24 15:25 Range/Units Whole Blood Glucose 142 H 70-110 MG/DL Activated Partial Thromboplast Time 113.8 *H 26.3-35.5 SEC White Blood Count 12.3 H 4.8-10.8 K/uL Red Blood Count 4.20 4.00-5.50 MIL/uL Hemoglobin 13.0 12.0-16.0 g/dL Hematocrit 40.0 36-48 % Mean Corpuscular Volume 95.2 79-99 fL Mean Corpuscular Hemoglobin 31.0 27.0-33.0 pg Mean Corpuscular Hemoglobin Concent 32.5 32.0-36.0 g/dL Red Cell Distribution Width 13.4 11.0-15.5 % Platelet Count 255 130-400 K/uL Mean Platelet Volume 12.6 H 7.5-10.5 fL Immature Granulocyte % (Auto) 0.2 0-1 % Neutrophils (%) (Auto) 52.9 40.0-77.0 % Lymphocytes (%) (Auto) 34.8 21.0-51.0 % Monocytes (%) (Auto) 7.3 3.0-13.0 % Eosinophils (%) (Auto) 3.7 0.0-8.0 % Basophils (%) (Auto) 1.1 0.0-5.0 % Neutrophils # (Auto) 6.5 1.8-7.7 K/uL Lymphocytes # (Auto) 4.3 1.0-4.8 K/uL Monocytes # (Auto) 0.9 0.1-1.0 K/uL Eosinophils # (Auto) 0.45 0.00-0.70 K/uL Basophils # (Auto) 0.13 0.00-0.20 K/uL Absolute Immature Granulocyte (auto 0.02 0-1 K/uL Nucleated Red Blood Cells 0.0 0.0-0.19 % Sodium Level 138 136-145 mmol/L Potassium Level 3.9 3.5-5.1 mmol/L Chloride Level 103 101-111 mmol/L Carbon Dioxide Level 31 21-32 mmol/L Blood Urea Nitrogen 19 H 7-18 mg/dL Creatinine 0.7 0.5-1.0 mg/dL Glomerular Filtration Rate Calc 94 >90 mL/min Random Glucose 138 H 70-105 mg/dL Total Calcium 9.5 8.5-10.1 mg/dL Magnesium Level 1.60 L 1.80-2.40 mg/dL Vitamin B12 Level 234 193-986 pg/mL Prothrombin Time 11.9 H 9.6-11.6 SEC Prothromb Time International Ratio 1.07 0.85-1.15 Hemoglobin A1c 6.2 H 4.0-6.0 % Estimated Average Glucose (eAG) 131 H 70-126 mg/dL Total Bilirubin 0.3 0.2-1.0 mg/dL Aspartate Amino Transf (AST/SGOT) 13 10-37 U/L Alanine Aminotransferase (ALT/SGPT) 13 12-78 U/L Alkaline Phosphatase 82 50-136 U/L Troponin I High Sensitivity 14 4-50 ng/L B-Type Natriuretic Peptide 79 0-100 pg/mL Total Protein 7.3 6.0-8.3 g/dL Albumin 3.6 3.5-5.0 g/dL Procalcitonin < 0.05 L 0.05-0.5 ng/mL Thyroid Stimulating Hormone (TSH) 3.27 0.36-3.74 uIU/mL Current Medications Medications (Trade) Dose Ordered Sig/Ava Route PRN Reason Start Time Stop Time Status Last Admin Dose Admin Acetaminophen (TYLenol 500MG TAB) 500 mg Q6H PRN PO MILD PAIN (1-3) 06/03/24 18:00 07/03/24 17:59 Apixaban (EliquIS) 5 mg BID PO 06/04/24 10:30 07/04/24 10:29 06/04/24 10:42 5 MG Apixaban (EliquIS) 5 mg BID PO 06/04/24 21:00 06/04/24 10:11 DC Diltiazem HCl 125 mg/Sodium Chloride 125 ml @ 0 mls/hr PROTOCOL IV 06/03/24 17:00 06/03/24 19:08 DC Famotidine (Pepcid 20mg Vial) 20 mg BID IV 06/03/24 21:00 07/03/24 20:59 06/04/24 09:01 20 MG Heparin Sodium (Porcine) (HEParin 5,000 UNIT VIAL) 7,500 unit ONCE SQ 06/03/24 18:00 06/03/24 19:44 DC 06/03/24 17:53 7,500 UNIT Heparin Sodium/ Dextrose 250 ml @ 0 mls/hr PROTOCOL IV 06/03/24 17:30 06/04/24 10:17 DC 06/04/24 08:48 6 MLS/HR Insulin Human Regular (humuLIN R 100 UNIT/ML 3ML) INSULIN SLIDING SCAL... ACHS SQ 06/03/24 21:00 07/03/24 20:59 Magnesium Sulfate 50 ml @ 0 mls/hr PROTOCOL PRN IV HYPOMAGNESEMIA 06/03/24 18:00 07/03/24 17:59 Metoprolol Tartrate (loprESSOR) 50 mg BID PO 06/03/24 17:30 06/03/24 19:09 DC 06/03/24 17:29 50 MG Metoprolol Tartrate (loprESSOR) 50 mg BID PO 06/03/24 21:00 06/03/24 17:24 DC Metoprolol Tartrate (loprESSOR) 50 mg BID PO 06/04/24 09:00 07/04/24 08:59 06/04/24 09:00 50 MG Potassium Chloride 100 ml @ 100 mls/hr AD PRN IV POTASSIUM PROTOCOL 06/03/24 18:00 07/03/24 17:59 Potassium Chloride (K-Dur/Klor-Con 20meq) 20 meq AD PRN PO POTASSIUM PROTOCOL 06/03/24 18:00 07/03/24 17:59 Potassium Chloride (KCl 10% Elixir 20meq/15ml) 20 meq AD PRN PO POTASSIUM PROTOCOL 06/03/24 18:00 07/03/24 17:59 DIAGNOSTICS / RADIOLOGY: [place] [address] IMAGING REPORT Signed PATIENT: JOSE CARRINGTON MR#: [id number] : 1955 SEX: F AGE: 68 LOCATION: [facility] ORDER 55 STATUS: ADM IN REPORT#: [id number] SERVICE 52 REASON: NEW ONSET A FIB ORDERING PHYSICIAN: CAROLYN BRODERICK MD PROCEDURE: ECHO CMP - ECHO 2-D COMPLETE APPROVED REPORT EXAM: Two-dimensional and M-mode echocardiogram with Doppler and color Doppler. INDICATION ICD: Atrial Fibrillation 2D Dimensions RVDd 3.5 cm LVEF(%) 48.9 (>50%) LVED Vol(simp.) 71.0 mL IVSd 0.7 (0.7-1.1cm) FS(%) 24 % LVES Vol(simp.) 33.0 mL LVDd 4.1 (3.8-5.6cm) LA (2D) 2.9 (1.6-4.0cm) LVEF(%, simp.) 54 % PWd 0.9 (0.7-1.1cm) Ao Root(2D) 2.9 (2.0-3.7cm) LA ESV INDEX (4CH) 24.10 mL/m2 IVSs 1.2 cm LVOT diam 1.8 (1.8-2.4cm) LA ESV INDEX (2CH) 35.20 mL/m2 LVDs 3.1 (2.5-4.0cm) IVC diam 1.1 cm LA ESV INDEX (BP) 29.00 mL/m2 PWs 1.2 cm M-Mode Dimensions EPSS 0.6 cm LA (MM) 2.7 (1.6-4.0cm) Ao Root(MM) 2.7 (2.0-3.7cm) Aortic Valve AoV VTI 0.3 m Ao Mean GR 5.0 mmHg LVOT VTI 0.13 m LURDES (VMAX) 1.1 cm2 LURDES (VTI) 1.1 cm2 Mitral Valve MV E Vmax 97.2 cm/s DECEL Time 148 ms MV A Vmax 34.6 cm/s P 1/2 T 49 ms E/A ratio 2.8 MVA (PHT) 4.5 cm2 MR Max PG 108 mmHg TDI E/E' Medial 12.1 E/E' Lateral 9.1 Medial E' Peak V 8.00 cm/s Lateral E' Peak V 10.70 cm/s Tricuspid Valve TR Vmax 2.3 m/s RAP (EST) 3 mmHg RVSP 24.0 mmHg TR Peak GR 21.0 mmHg Left Ventricle Left ventricular cavity size is normal. There is normal LV segmental wall motion. There is normal left ventricular wall thickness. LVEF is 50-55%. Indeterminate diastolic dysfunction. Right Ventricle The right ventricle is normal size. The right ventricular systolic function is normal. Atria The left atrium size is normal. The right atrium size is normal. Aortic Valve The aortic valve is normal in structure and function. No aortic regurgitation is present. There is no aortic valvular stenosis. Mitral Valve The mitral valve is mildly thickened. Mitral valve leaflets open well. Mitral regurgitation is mild to moderate. There is no mitral valve stenosis. Tricuspid Valve The tricuspid valve leaflets are mildly thickened. There is moderate tricuspid valve regurgitation noted. Pulmonic Valve The pulmonary valve is normal in structure and function. There is no pulmonic valvular regurgitation. Great Vessels The aortic root is normal in size. The IVC is normal in size and collapses >50% with inspiration. Pericardium No pericardial effusion. Conclusion LVEF is 50-55%. Mitral regurgitation is mild to moderate. There is moderate tricuspid valve regurgitation noted. DICTATED BY: LESLIE YUSUF MD DATE: 06/04/24 0837 ELECTRONICALLY SIGNED BY: LESLIE YUSUF MD DATE: 06/04/24 1202 ASSESSMENT: New onset paroxysmal atrial fibrillation with RVR POA CHADSVASC of 3 Hyperlipidemia History of diabetes mellitus type 2 Hypomagnesemia PLAN: The patient remains admitted on medical surgical floor under telemetry monitoring.. New onset paroxysmal atrial fibrillation with RVR POA CHADSVASC of 3 * Discontinue Heparin GTT and continue Eliquis 5 mg PO Q12 daily. * Continue with Metoprolol 50 mg BID and will be titrated to TID if symptoms are uncontrolled. * Keep the Potassium more than 4.0 and Magnesium more than 2.0. * Echocardiogram showed LVEF is 50-55% with intermediate diastolic dysfunction, mild to moderate mitral regurgitation and moderate tricuspid valve regurgitation noted. * Continue under telemetry monitoring Replace electrolytes per protocol Insulin sliding scale for hyperglycemia Hypoglycemia protocol Home medications were reconciled and resumed. AM labs: CBC, BMP, Magnesium, APTT Further orders per hospitalization course. ATTESTATION BY PHYSICIAN I have seen and examined the patient. I reviewed the documentation, medical decision making, and treatment plan as noted by the resident provider above. I agree with the findings and plan of care. Josh Ross MD, MANALI MD Jun 04, 2024 18:06
[2024-06-04] MEDS: MAGNESIUM 2GM PREMIX 50ML 50 ML IV PRN (20:05)
[2024-06-04] MEDS ORDERED: APIXaban 5 MG TABLET PO SCH (21:00)
[2024-06-04] MEDS ORDERED: DEXTROSE 50%-WATER 50 ML DISP.SYRIN IV PRN (22:00)
[2024-06-04] MEDS ORDERED: GLUCAGON 1MG KIT 1 MG ML IM PRN (22:00)
[2024-06-05] VITALS (10 sets, daily range): BP systolic 113–150; BP diastolic 52–92; PULSE 65–96; RESP 17–18; TEMP 97.2–98.1; O2SAT 99
--- NOTE | 2024-06-05 02:02 | NUR ---
nursing pm note patient alert and oriented times 3. plan of care discussed with her and she verbalized understanding. patient has no pain tonight. she walks to the restroom without issues. she has slept about 6 hours tonight. she has no respiratory distress, nausea, or vomiting. call light within reach, bed alarm on, 2 side rails up. will continue to monitor patient.
[2024-06-05 06:17] LABS: BASOPHILS # (AUTO) 0.11 K/uL (0.00-0.20); BASOPHILS % (AUTO) 1.2 % (0.0-5.0); EOSINOPHILS # (AUTO) 0.46 K/uL (0.00-0.70); EOSINOPHILS % (AUTO) 4.9 % (0.0-8.0); HEMATOCRIT 40.7 % (36-48); IMMATURE GRANULOCYTE ABSOLUTE 0.02 K/uL (0-1); LYMPHOCYTES # (AUTO) 3.4 K/uL (1.0-4.8); LYMPHOCYTES % (AUTO) 36.2 % (21.0-51.0); MEAN CORPUSCULAR HGB CONC 32.2 g/dL (32.0-36.0); MEAN CORPUSCULAR VOLUME 96.4 fL (79-99); MONOCYTES # (AUTO) 0.9 K/uL (0.1-1.0); MONOCYTES % (AUTO) 9.1 % (3.0-13.0); NEUTROPHILS # (AUTO) 4.6 K/uL (1.8-7.7); NEUTROPHILS % (AUTO) 48.4 % (40.0-77.0); PLATELET COUNT (AUTO) 229 K/uL (130-400); RED BLOOD CELL COUNT(AUTO) 4.22 MIL/uL (4.00-5.50); RED CELL DISTRIBUTION WIDTH 13.6 % (11.0-15.5); WHITE BLOOD COUNT (AUTO) 9.5 K/uL (4.8-10.8)
[2024-06-05 06:31] LABS: CREATININE 0.7 mg/dL (0.5-1.0); MAGNESIUM 2.3 mg/dL (1.80-2.40); POTASSIUM 4.2 mmol/L (3.5-5.1)
[2024-06-05] MEDS: metoPROLOL tartRATE 50 MG TAB PO SCH (08:30)
--- NOTE | 2024-06-05 08:47 | PN ---
[facility] CARDIOLOGY PROGRESS NOTE Date Patient Seen: Jun 05, 2024 Time of Visit: 08:38 Problem List: [Atrial fibrillation with RVR CHADsVAsC of 3 Type 2 diabetes mellitus Hyperlipidemia ] Interval History: [No acute events overnight , the patient underwent 2Dechocardiogram that showed LVEF 50-55 % mild to moderate mitral regurgitation and moderate tricuspid regurgitation, current telemetry shows a HR in the 120s . No chest pain , palpitations, dyspnea or any other anginal equivalents. ] Physical Examination: GENERAL: [No acute distress.] HEAD: [Normal with no signs of head trauma.] EYES: [PERRLA, EOMI, conjunctiva and sclera normal.] ENT: [Hearing grossly intact, normal oropharynx.] NECK: [Supple without JVD. There is no tenderness, lymphadenopathy, or masses. No thyromegaly. Normal carotid upstrokes without bruits.] LUNGS: [Clear breath sounds bilaterally. . No wheezes, or rhonchi.] HEART: Irregularly irregular rate. Normal S1 and S2 without mumurs, gallop or rub.] VASC: [Peripheral pulses +2 bilaterally.] ABD: [Bowel sounds normal, soft, nontender, no masses, no organomegaly. No audible bruits.] : [Not examined] LYMPH: [No lymphadenopathy noted.] EXT: [No clubbing, cyanosis or edema.] SKIN: [No rashes or lesions noted.] NEURO: [Awake, alert, and oriented x3. No focal sensory or strength deficits n oted.] Laboratory: [ ] Hematology Labs: Test 06/05/24 05:50 Range/Units White Blood Count 9.5 4.8-10.8 K/uL Red Blood Count 4.22 4.00-5.50 MIL/uL Hemoglobin 13.1 12.0-16.0 g/dL Hematocrit 40.7 36-48 % Mean Corpuscular Volume 96.4 79-99 fL Mean Corpuscular Hemoglobin 31.0 27.0-33.0 pg Mean Corpuscular Hemoglobin Concent 32.2 32.0-36.0 g/dL Red Cell Distribution Width 13.6 11.0-15.5 % Platelet Count 229 130-400 K/uL Mean Platelet Volume 11.7 H 7.5-10.5 fL Immature Granulocyte % (Auto) 0.2 0-1 % Neutrophils (%) (Auto) 48.4 40.0-77.0 % Lymphocytes (%) (Auto) 36.2 21.0-51.0 % Monocytes (%) (Auto) 9.1 3.0-13.0 % Eosinophils (%) (Auto) 4.9 0.0-8.0 % Basophils (%) (Auto) 1.2 0.0-5.0 % Neutrophils # (Auto) 4.6 1.8-7.7 K/uL Lymphocytes # (Auto) 3.4 1.0-4.8 K/uL Monocytes # (Auto) 0.9 0.1-1.0 K/uL Eosinophils # (Auto) 0.46 0.00-0.70 K/uL Basophils # (Auto) 0.11 0.00-0.20 K/uL Absolute Immature Granulocyte (auto 0.02 0-1 K/uL Nucleated Red Blood Cells 0.0 0.0-0.19 % Chemistry Labs: Test 06/05/24 05:50 06/05/24 05:14 06/04/24 00:36 06/03/24 15:25 Range/Units Sodium Level 144 136-145 mmol/L Potassium Level 4.2 3.5-5.1 mmol/L Chloride Level 108 101-111 mmol/L Carbon Dioxide Level 30 21-32 mmol/L Blood Urea Nitrogen 30 H 7-18 mg/dL Creatinine 0.7 0.5-1.0 mg/dL Glomerular Filtration Rate Calc 94 >90 mL/min Random Glucose 136 H 70-105 mg/dL Total Calcium 8.8 8.5-10.1 mg/dL Magnesium Level 2.30 1.80-2.40 mg/dL Whole Blood Glucose 120 H 70-110 MG/DL Bedside Glucose Comment Notified Nurse Vitamin B12 Level 234 193-986 pg/mL Hemoglobin A1c 6.2 H 4.0-6.0 % Estimated Average Glucose (eAG) 131 H 70-126 mg/dL Total Bilirubin 0.3 0.2-1.0 mg/dL Aspartate Amino Transf (AST/SGOT) 13 10-37 U/L Alanine Aminotransferase (ALT/SGPT) 13 12-78 U/L Alkaline Phosphatase 82 50-136 U/L Troponin I High Sensitivity 14 4-50 ng/L B-Type Natriuretic Peptide 79 0-100 pg/mL Total Protein 7.3 6.0-8.3 g/dL Albumin 3.6 3.5-5.0 g/dL Procalcitonin < 0.05 L 0.05-0.5 ng/mL Thyroid Stimulating Hormone (TSH) 3.27 0.36-3.74 uIU/mL Coagulation Labs: Test 06/05/24 05:50 06/03/24 15:25 Range/Units Activated Partial Thromboplast Time 28.2 # 26.3-35.5 SEC Prothrombin Time 11.9 H 9.6-11.6 SEC Prothromb Time International Ratio 1.07 0.85-1.15 Diagnostics / Radiology: [Copy/Paste Echos/Imaging Report here] Impression and Plan: [[Atrial fibrillation with RVR CHADsVAsC of 3 Type 2 diabetes mellitus Hyperlipidemia ] Plan: [# Atrial fibrillation with RVR CHADsVAsC of 3 The patient was initially seen by her PCP due to ongoing palpitations At that time she was found tachycardic and atrial fibrillation was noted She was refered to [facility] for further evaluation Upon arrival her ECG showed a-fib with RVR in the 120-130s Review of telemetry shows ongoing a-fib in the low 100s The patient currently denies any chest pain , palpitations or dyspnea She was initially started on heparin drip Due to her elevated CHADsVAsC we will stop heparin and transition to Eliquis 5 mg every 12 hours. Current telemetry shows a HR in the 120s To optimize rate control we will increase Lopressor 50 mg every 8 hours We will initiate Digoxin loading dose 500 mcg IV now x 1 , and then in another 6 hours administer Digoxin 250 mcg IV x 1 We will continue to monitor the patients heart rate and re-assess initiating oral Digoxin tomorrow morning Keep on telemetry, monitor / replace electrolytes as needed 2Dechocardiogram that showed LVEF 50-55 % mild to moderate mitral regurgitation and moderate tricuspid regurgitation Obtain Digoxin level in the AM ( 06-06-24 ) Thank you fot this consult , cardiology will continue to follow along for rate control optimization ATTESTATION BY PHYSICIAN I have seen and examined the patient, reviewed the above documentation, participated in medical decision making, made necessary modifications, and agree with the treatment plan as documented by my mid-level provider above. MD JEANNIE Thompson DANIELLE M MD Jun 05, 2024 08:47
--- NOTE | 2024-06-05 10:37 | PN ---
[facility] PROGRESS NOTE Date of Service: Jun 05, 2024 Time of Service: 10:37 SUBJECTIVE: The patient is a 68-year-old female with a medical history of hyperlipidemia and type 2 diabetes mellitus presented to the emergency department with the chief complaints of palpitations lasting for 2 days. During 3 month follow-up visit with her primary care physician, an EKG revealed atrial fibrillation with rapid ventricular response, with pulse rates in the 130s and 140s. In the emergency department, labs were nonsignificant and cardiac enzymes were negative. She received Cardizem, but there was no improvement. Following cardiology recommendations, she was treated with Metoprolol 5 mg IV and subsequently started on Metoprolol 50 mg BID. Additionally, she was placed on a Heparin drip. The patient has been admitted to the medical-surgical floor under telemetry for the management of atrial fibrillation with rapid ventricular response. 06/04/2024: The patient was examined at her bedside with her sister present. She was lying comfortably in bed and currently denied any symptoms of palpitations, chest pain, or shortness of breath. Her sister noted that atrial fibrillation runs in the family. The patient is currently in atrial fibrillation with a pulse rate in the early 100s. According to cardiology consultations, the Heparin drip will be discontinued, and she will be started on Eliquis 5 mg every 12 hours, along with continuing Metoprolol 50 mg BID. The patient will be closely monitored in telemetry, following cardiology recommendations. 06/05/2024: The patient was examined today with her sister at her bedside. She was drawing and coloring in her books. The vital signs recorded in the EMR did not indicate pulse rates exceeding 90; however, telemetry shows that she continues to be in atrial fibrillation with pulse rates at 115. The nurse checked the monitor to verify the discrepancy between the telemetry results and the floor vital measurements. The patient currently denies experiencing shortness of breath, palpitations, chest pain, or dizziness. She has been eating and walking well. Copying Machine Mechanic, Dr. Yvrose Esteves consulted her today, and the patient received 500 mcg loading dose, scheduled to receive Digoxin 250 mcg at 2:00 PM and 8:00 PM. We will continue anticoagulant therapy, and Metoprolol has been titrated to 50 mg three times a day. Lab results did not reveal any abnormalities. We will closely monitor her today using telemetry. A further assessment and plan have been discussed below. REVIEW OF SYSTEMS CONSTITUTIONAL: Denies fevers, chills, or night sweats. No unintentional weight loss reported. NEUROLOGICAL: Denies headache, amaurosis fugax, motor weakness, sensory deficit, vertigo/spinning sensation, gait abnormalities, or tremors. ENT: No hearing loss, otalgia, otorrhea, rhinitis, rhinorrhea, hoarseness, or sore throat. CARDIOVASCULAR: Positive for palpitations. Denied any chest pain, orthopnea, PND PULMONARY: Denies any shortness of breath, cough, phlegm/sputum, hemoptysis, pleuritic chest pain. GASTROINTESTINAL: Denies any type of dysphagia to either liquids or solids. Denies nausea, vomiting, pyrosis, early satiety, abdominal pain, diarrhea, constipation, or changes in stool consistency or caliber. Denies coffee-ground emesis, hematemesis, hematochezia, or melanotic stools. GENITOURINARY: Denies frequency, urgency, nocturia, hematuria or incontinence (Storage/Irritative symptoms.) Low urinary stream, straining to void, urinary intermittency or hesitancy, splitting of the voiding stream, terminal dribbling. ENDOCRINOLOGIC: Denies polyuria, polydipsia, polyphagia or heat/cold intolerances. HEMATOLOGIC: Denies thrombophilia/previous clots, or coagulopathy/bleeding disorders. ONCOLOGIC: Denies personal history of malignancy. DERMATOLOGIC: Denies rashes or pruritus. PSYCHIATRIC: Denies any suicidal or homicidal ideation. Denies hallucinations. PHYSICAL EXAM GENERAL APPEARANCE: The patient is awake, alert, and oriented, in no acute cardiopulmonary distress. NEUROLOGICAL: Cranial nerves II-XII grossly intact. Motor is 5/5 in bilateral upper and lower extremities proximal to distal. No sensory deficits. HEENT: Face is symmetric. Pupils are equal and reactive. Extraocular movements are intact. NECK: Supple. No JVD. No thyromegaly. No submental, submandibular, pre- /postauricular, occipital or supraclavicular lymphadenopathy. CHEST: Normal chest expansion. No Telemetry. LUNGS: Absence of any rales, rhonchi or any wheezing. CARDIOVASCULAR: Irregularly irregular. S1 and S2 normal. No appreciable rubs, murmurs or gallops. ABDOMEN: Soft, nontender, and nondistended. There is no rebound, voluntary guarding, or rigidity. : Deferred. No Marquez. EXTREMITIES: Non-edematous and not cyanotic. No clubbing. Good capillary refill. SKIN: No skin breakdown. Vital Signs (last 8hr) Date Time Temp Pulse Resp B/P (MAP) Pulse Ox O2 Delivery O2 Flow Rate FiO2 06/05/24 08:00 99 Room Air* 0 21 06/05/24 07:34 97.5 67 17 125/52 99 Room Air 06/05/24 03:48 97.5 68 17 113/74 98 Room Air 06/05/24 03:47 97.5 68 17 113/74 98 Room Air LABS: Laboratory: Test 06/05/24 10:30 06/05/24 05:50 06/05/24 05:14 06/04/24 00:36 Range/Units Whole Blood Glucose 130 H 70-110 MG/DL White Blood Count 9.5 4.8-10.8 K/uL Red Blood Count 4.22 4.00-5.50 MIL/uL Hemoglobin 13.1 12.0-16.0 g/dL Hematocrit 40.7 36-48 % Mean Corpuscular Volume 96.4 79-99 fL Mean Corpuscular Hemoglobin 31.0 27.0-33.0 pg Mean Corpuscular Hemoglobin Concent 32.2 32.0-36.0 g/dL Red Cell Distribution Width 13.6 11.0-15.5 % Platelet Count 229 130-400 K/uL Mean Platelet Volume 11.7 H 7.5-10.5 fL Immature Granulocyte % (Auto) 0.2 0-1 % Neutrophils (%) (Auto) 48.4 40.0-77.0 % Lymphocytes (%) (Auto) 36.2 21.0-51.0 % Monocytes (%) (Auto) 9.1 3.0-13.0 % Eosinophils (%) (Auto) 4.9 0.0-8.0 % Basophils (%) (Auto) 1.2 0.0-5.0 % Neutrophils # (Auto) 4.6 1.8-7.7 K/uL Lymphocytes # (Auto) 3.4 1.0-4.8 K/uL Monocytes # (Auto) 0.9 0.1-1.0 K/uL Eosinophils # (Auto) 0.46 0.00-0.70 K/uL Basophils # (Auto) 0.11 0.00-0.20 K/uL Absolute Immature Granulocyte (auto 0.02 0-1 K/uL Nucleated Red Blood Cells 0.0 0.0-0.19 % Activated Partial Thromboplast Time 28.2 # 26.3-35.5 SEC Sodium Level 144 136-145 mmol/L Potassium Level 4.2 3.5-5.1 mmol/L Chloride Level 108 101-111 mmol/L Carbon Dioxide Level 30 21-32 mmol/L Blood Urea Nitrogen 30 H 7-18 mg/dL Creatinine 0.7 0.5-1.0 mg/dL Glomerular Filtration Rate Calc 94 >90 mL/min Random Glucose 136 H 70-105 mg/dL Total Calcium 8.8 8.5-10.1 mg/dL Magnesium Level 2.30 1.80-2.40 mg/dL Bedside Glucose Comment Notified Nurse Vitamin B12 Level 234 193-986 pg/mL Test 06/03/24 15:25 Range/Units Prothrombin Time 11.9 H 9.6-11.6 SEC Prothromb Time International Ratio 1.07 0.85-1.15 Hemoglobin A1c 6.2 H 4.0-6.0 % Estimated Average Glucose (eAG) 131 H 70-126 mg/dL Total Bilirubin 0.3 0.2-1.0 mg/dL Aspartate Amino Transf (AST/SGOT) 13 10-37 U/L Alanine Aminotransferase (ALT/SGPT) 13 12-78 U/L Alkaline Phosphatase 82 50-136 U/L Troponin I High Sensitivity 14 4-50 ng/L B-Type Natriuretic Peptide 79 0-100 pg/mL Total Protein 7.3 6.0-8.3 g/dL Albumin 3.6 3.5-5.0 g/dL Procalcitonin < 0.05 L 0.05-0.5 ng/mL Thyroid Stimulating Hormone (TSH) 3.27 0.36-3.74 uIU/mL Current Medications Medications (Trade) Dose Ordered Sig/Ava Route PRN Reason Start Time Stop Time Status Last Admin Dose Admin Acetaminophen (TYLenol 500MG TAB) 500 mg Q6H PRN PO MILD PAIN (1-3) 06/03/24 18:00 07/03/24 17:59 Apixaban (EliquIS) 5 mg BID PO 06/04/24 10:30 2/22/25 10:29 06/05/24 07:56 5 MG Apixaban (EliquIS) 5 mg BID PO 06/04/24 21:00 06/04/24 10:11 DC Atorvastatin Calcium (LIPItor 10MG) 10 mg HS PO 06/05/24 21:00 07/05/24 20:59 Dextrose (D50w) 50 ml AD PRN IV HYPOGLYCEMIA PROTOCOL 06/04/24 22:00 07/04/24 21:59 Diltiazem HCl 125 mg/Sodium Chloride 125 ml @ 0 mls/hr PROTOCOL IV 06/03/24 17:00 06/03/24 19:08 DC Famotidine (Pepcid 20mg Vial) 20 mg BID IV 06/03/24 21:00 07/03/24 20:59 06/05/24 07:56 20 MG Glucagon (Glucagon 1mg Kit) 1 mg AD PRN IM HYPOGLYCEMIA PROTOCOL 06/04/24 22:00 07/04/24 21:59 Heparin Sodium (Porcine) (HEParin 5,000 UNIT VIAL) 7,500 unit ONCE SQ 06/03/24 18:00 06/03/24 19:44 DC 06/03/24 17:53 7,500 UNIT Heparin Sodium/ Dextrose 250 ml @ 0 mls/hr PROTOCOL IV 06/03/24 17:30 06/04/24 10:17 DC 06/04/24 08:48 6 MLS/HR Insulin Human Regular (humuLIN R 100 UNIT/ML 3ML) INSULIN SLIDING SCAL... ACHS SQ 06/03/24 21:00 07/03/24 20:59 06/04/24 20:04 2 UNIT Magnesium Sulfate 50 ml @ 0 mls/hr PROTOCOL PRN IV HYPOMAGNESEMIA 06/03/24 18:00 07/03/24 17:59 06/04/24 20:05 15 MLS/HR Metoprolol Tartrate (loprESSOR) 50 mg BID PO 06/03/24 17:30 06/03/24 19:09 DC 06/03/24 17:29 50 MG Metoprolol Tartrate (loprESSOR) 50 mg BID PO 06/03/24 21:00 06/03/24 17:24 DC Metoprolol Tartrate (loprESSOR) 50 mg BID PO 06/04/24 09:00 06/05/24 08:06 DC 06/05/24 07:56 50 MG Metoprolol Tartrate (loprESSOR) 50 mg Q8H5 PO 06/05/24 08:30 07/04/24 08:59 Potassium Chloride 100 ml @ 100 mls/hr AD PRN IV POTASSIUM PROTOCOL 06/03/24 18:00 07/03/24 17:59 Potassium Chloride (K-Dur/Klor-Con 20meq) 20 meq AD PRN PO POTASSIUM PROTOCOL 06/03/24 18:00 07/03/24 17:59 Potassium Chloride (KCl 10% Elixir 20meq/15ml) 20 meq AD PRN PO POTASSIUM PROTOCOL 06/03/24 18:00 07/03/24 17:59 DIAGNOSTICS / RADIOLOGY: [address] [address] IMAGING REPORT Signed PATIENT: JOSE CARRINGTON MR#: [id number] : 1955 SEX: F AGE: 68 LOCATION: [facility] ORDER 55 STATUS: ADM IN REPORT#: [id number] SERVICE 52 REASON: NEW ONSET A FIB ORDERING PHYSICIAN: CAROLYN BRODERICK MD PROCEDURE: ECHO CMP - ECHO 2-D COMPLETE APPROVED REPORT EXAM: Two-dimensional and M-mode echocardiogram with Doppler and color Doppler. INDICATION ICD: Atrial Fibrillation 2D Dimensions RVDd 3.5 cm LVEF(%) 48.9 (>50%) LVED Vol(simp.) 71.0 mL IVSd 0.7 (0.7-1.1cm) FS(%) 24 % LVES Vol(simp.) 33.0 mL LVDd 4.1 (3.8-5.6cm) LA (2D) 2.9 (1.6-4.0cm) LVEF(%, simp.) 54 % PWd 0.9 (0.7-1.1cm) Ao Root(2D) 2.9 (2.0-3.7cm) LA ESV INDEX (4CH) 24.10 mL/m2 IVSs 1.2 cm LVOT diam 1.8 (1.8-2.4cm) LA ESV INDEX (2CH) 35.20 mL/m2 LVDs 3.1 (2.5-4.0cm) IVC diam 1.1 cm LA ESV INDEX (BP) 29.00 mL/m2 PWs 1.2 cm M-Mode Dimensions EPSS 0.6 cm LA (MM) 2.7 (1.6-4.0cm) Ao Root(MM) 2.7 (2.0-3.7cm) Aortic Valve AoV VTI 0.3 m Ao Mean GR 5.0 mmHg LVOT VTI 0.13 m LURDES (VMAX) 1.1 cm2 LURDES (VTI) 1.1 cm2 Mitral Valve MV E Vmax 97.2 cm/s DECEL Time 148 ms MV A Vmax 34.6 cm/s P 1/2 T 49 ms E/A ratio 2.8 MVA (PHT) 4.5 cm2 MR Max PG 108 mmHg TDI E/E' Medial 12.1 E/E' Lateral 9.1 Medial E' Peak V 8.00 cm/s Lateral E' Peak V 10.70 cm/s Tricuspid Valve TR Vmax 2.3 m/s RAP (EST) 3 mmHg RVSP 24.0 mmHg TR Peak GR 21.0 mmHg Left Ventricle Left ventricular cavity size is normal. There is normal LV segmental wall motion. There is normal left ventricular wall thickness. LVEF is 50-55%. Indeterminate diastolic dysfunction. Right Ventricle The right ventricle is normal size. The right ventricular systolic function is normal. Atria The left atrium size is normal. The right atrium size is normal. Aortic Valve The aortic valve is normal in structure and function. No aortic regurgitation is present. There is no aortic valvular stenosis. Mitral Valve The mitral valve is mildly thickened. Mitral valve leaflets open well. Mitral regurgitation is mild to moderate. There is no mitral valve stenosis. Tricuspid Valve The tricuspid valve leaflets are mildly thickened. There is moderate tricuspid valve regurgitation noted. Pulmonic Valve The pulmonary valve is normal in structure and function. There is no pulmonic valvular regurgitation. Great Vessels The aortic root is normal in size. The IVC is normal in size and collapses >50% with inspiration. Pericardium No pericardial effusion. Conclusion LVEF is 50-55%. Mitral regurgitation is mild to moderate. There is moderate tricuspid valve regurgitation noted. DICTATED BY: LESLIE YUSUF MD DATE: 06/04/24 0837 ELECTRONICALLY SIGNED BY: LESLIE YUSUF MD DATE: 06/04/24 1201 ASSESSMENT: New onset paroxysmal atrial fibrillation with RVR POA CHADSVASC of 3 Hyperlipidemia History of diabetes mellitus type 2 Hypomagnesemia, resolved Protein calorie malnutrition PLAN: The patient remains admitted on medical surgical floor under telemetry monitoring. New onset paroxysmal atrial fibrillation with RVR POA CHADSVASC of 3 * Discontinued Heparin GTT and Continue Eliquis 5 mg PO Q12 daily. * Metoprolol 50 mg was titrated to TID per cardiology recommendations * The patient is received Digoxin 500 mcg loading dose and scheduled to receive Digoxin 250 mcg at 2:00 PM and 8:00 PM today. * Keep the Potassium more than 4.0 and Magnesium more than 2.0. * Echocardiogram showed LVEF is 50-55% with intermediate diastolic dysfunction, mild to moderate mitral regurgitation and moderate tricuspid valve regurgitation noted. * Continue under telemetry monitoring * Follow cardiology recommendations. Replace electrolytes per protocol Insulin sliding scale for hyperglycemia Hypoglycemia protocol Animal Care Worker consult were made for protein calorie malnutrition. Recommendations are provided under the notes section. Recommendations appreciated. Home medications were reconciled and resumed. AM labs: BMP, Digoxin Further orders per hospitalization course. ATTESTATION BY PHYSICIAN I have seen and examined the patient. I reviewed the documentation, medical decision making, and treatment plan as noted by the resident provider above. I agree with the findings and plan of care. Josh Ross MD, MANALI MD Jun 05, 2024 10:37
[2024-06-05] MEDS: DIGOxin 250 MCG/ML 2ML AMP IV ONE ×3 (10:41→21:14)
--- NOTE | 2024-06-05 16:35 | NUR ---
DCP CM SPOKE TO PT ASSESSMENT DONE. PATIENT IS INDEPENDENT PRIOR TO ADMISSION, LIVES AT HOME WITH HER SISTER. DENIES ANY EQUIPMENT/SERVICES. FEELS SAFE TO GO BACK HOME, SISTER ABLE TO ASSIST WITH TRANSPORTATION AND NEEDS NECESSARY. DCP HOME ONCE STABLE. CM TO CONTINUE TO FOLLOW UP. Addendum: 06/05/24 at 1656 by SARY HIGGINBOTHAM LVN CM Amended: Links added.
[2024-06-05] MEDS: atorVAStatin 10 MG TABLET PO SCH (21:12)
[2024-06-06] VITALS (9 sets, daily range): BP systolic 112–139; BP diastolic 74–90; PULSE 66–95; RESP 17–19; TEMP 97.3–98; O2SAT 99
[2024-06-06 04:12] LABS: CREATININE 0.8 mg/dL (0.5-1.0); DIGOXIN 1.79 ng/mL (0.50-2.00); POTASSIUM 4.3 mmol/L (3.5-5.1)
--- NOTE | 2024-06-06 05:25 | NUR ---
HR IN THE 40S, METOPROLOL HELD AT THIS TIME D/T DECREASED HEART RATE
--- NOTE | 2024-06-06 13:51 | PN ---
[facility] CARDIOLOGY PROGRESS NOTE Date Patient Seen: Jun 06, 2024 Time of Visit: 13:41 Interval History: This is a 68-year-old white female with a past medical history of hyperlipidemia, recently diagnosed type 2 diabetes who was sent from the office of Dr. Kaelyn Parra after the patient was found to be in atrial fibrillation with rapid ventricular response at her office. The patient reports that she had a routine 4 month follow-up with Dr. Parra on the day of admission. She was noted to have a rapid heart rate in the office and an EKG demonstrated atrial fibrillation with RVR and was triaged to the hospital for further assessment. Although today, she denies any palpitations, exertional fatigue, exertional dyspnea the day of the office visit, in the ER she did report some palpitations and feeling jittery. She was initiated on management with metoprolol and continued to have heart rates into the 120-130 beat per minute range on 06/05/2024. She received digoxin 250 mcg IV x2 doses and metoprolol was ignacia eduled at 50 mg p.o. q.8 hours. Overnight, she was noted to have atrial fibrillation with slow ventricular response into the 40 beat per minute range. Nursing staff held her pigment grinder dose of metoprolol (5:00 a.m. dose) and the patient subsequently developed atrial fibrillation with rapid ventricular response into the 120 beat per minute range before noon. She was given her metoprolol 50 mg and her heart rate is currently in the 70-80 beat per minute range. She offers no prior history of coronary artery disease or PR and denies any exertional angina, exertional dyspnea or fatigue. She also offers no prior history of sleep apnea. A 2D echocardiogram on has demonstrated an LVEF of 50-55%, [id number] MR and moderate TR. Physical Examination: GENERAL: No acute distress. HEAD: Normal with no signs of head trauma. EYES: PERRLA, EOMI, conjunctiva and sclera normal. NECK: Supple without JVD. There is no tenderness, lymphadenopathy, or masses. No thyromegaly. Normal carotid upstrokes without bruits. LUNGS: Clear breath sounds bilaterally. No wheezes, or rhonchi. HEART: Irregularly irregular underlying rhythm with normal heart rate.Normal S1 and S2 without murmurs, gallop or rub. VASC: Peripheral pulses +2 bilaterally. EXT: No clubbing, cyanosis or edema. NEURO: Awake, alert, and oriented x3. No focal neurological deficits noted. Laboratory: Hematology Labs: Test 06/05/24 05:50 Range/Units White Blood Count 9.5 4.8-10.8 K/uL Red Blood Count 4.22 4.00-5.50 MIL/uL Hemoglobin 13.1 12.0-16.0 g/dL Hematocrit 40.7 36-48 % Mean Corpuscular Volume 96.4 79-99 fL Mean Corpuscular Hemoglobin 31.0 27.0-33.0 pg Mean Corpuscular Hemoglobin Concent 32.2 32.0-36.0 g/dL Red Cell Distribution Width 13.6 11.0-15.5 % Platelet Count 229 130-400 K/uL Mean Platelet Volume 11.7 H 7.5-10.5 fL Immature Granulocyte % (Auto) 0.2 0-1 % Neutrophils (%) (Auto) 48.4 40.0-77.0 % Lymphocytes (%) (Auto) 36.2 21.0-51.0 % Monocytes (%) (Auto) 9.1 3.0-13.0 % Eosinophils (%) (Auto) 4.9 0.0-8.0 % Basophils (%) (Auto) 1.2 0.0-5.0 % Neutrophils # (Auto) 4.6 1.8-7.7 K/uL Lymphocytes # (Auto) 3.4 1.0-4.8 K/uL Monocytes # (Auto) 0.9 0.1-1.0 K/uL Eosinophils # (Auto) 0.46 0.00-0.70 K/uL Basophils # (Auto) 0.11 0.00-0.20 K/uL Absolute Immature Granulocyte (auto 0.02 0-1 K/uL Nucleated Red Blood Cells 0.0 0.0-0.19 % Chemistry Labs: Test 06/06/24 11:26 06/06/24 05:09 06/06/24 03:22 06/05/24 05:50 Range/Units Whole Blood Glucose 105 70-110 MG/DL Bedside Glucose Comment Notified Nurse Sodium Level 136 136-145 mmol/L Potassium Level 4.3 3.5-5.1 mmol/L Chloride Level 104 101-111 mmol/L Carbon Dioxide Level 29 21-32 mmol/L Blood Urea Nitrogen 32 H 7-18 mg/dL Creatinine 0.8 0.5-1.0 mg/dL Glomerular Filtration Rate Calc 80 >90 mL/min Random Glucose 152 H 70-105 mg/dL Total Calcium 8.8 8.5-10.1 mg/dL Magnesium Level 2.30 1.80-2.40 mg/dL Coagulation Labs: Test 06/05/24 05:50 Range/Units Activated Partial Thromboplast Time 28.2 # 26.3-35.5 SEC Diagnostics / Radiology: 2D echocardiogram 06/04/2024: Conclusion LVEF is 50-55%. Mitral regurgitation is mild to moderate. There is moderate tricuspid valve regurgitation noted. Impression and Plan: Atrial fibrillation with rapid ventricular response of uncertain duration CHADs VASc stroke risk score of 3: Normal LV systolic function with an LVEF of 50-55% and [id number] MR and moderate TR by 2D echocardiogram 06/04/2024: -reduce metoprolol to 50 mg p.o. b.i.d. given nocturnal heart rates into the 40 beat per minute range, which may have in part been associated with the addition of digoxin (received digoxin 250 mcg IV x2 doses yesterday) -avoid any further digoxin -continue Eliquis anticoagulation initiated 06/04/2024 -the patient was primarily asymptomatic for any significant palpitations, dizziness, near-syncope or syncope or exertional fatigue rate dyspnea -continue efforts at rate control and anticoagulation and consider attempted direct current cardioversion in 3-4 weeks as an outpatient -monitor heart rate response with reduced dose metoprolol to 50 mg p.o. b.i.d. -discharge planning 24 hours if rate controlled Comorbidities: Hyperlipidemia Type 2 diabetes mellitus PHYSICIAN ATTESTATION OF PHYSICIAN FRUIT LOADER DOCUMENTATION: I attest that I was physically present for the montalvo portions of the service and evaluated the patient with the Physician Rivet [employer], and I reviewed and discussed the case with the Physician [employer]et [employer] and made modifications to the Physician [employer]et [employer]'s findings and plans of care as documented above LEIA PARK Jun 06, 2024 13:51 EDD MARTINEZ MD Jun 06, 2024 16:03
[2024-06-06] MEDS: metoPROLOL tartRATE 50 MG TAB PO SCH (21:07)
[2024-06-07 00:26] VITALS: BP 174/58; PULSE 68; RESP 20; TEMP 98.1
[2024-06-07 00:27] VITALS: BP 122/71; PULSE 60; RESP 17; TEMP 97.8
[2024-06-07 04:16] VITALS: BP 137/76; PULSE 83; RESP 18; TEMP 97.7
[2024-06-07 07:24] VITALS: BP 115/72; PULSE 57; RESP 16; TEMP 98
[2024-06-07 08:01] VITALS: O2SAT 100
[2024-06-07 11:52] VITALS: BP 105/60; PULSE 80; RESP 18; TEMP 97.9
--- NOTE | 2024-06-07 11:56 | PN ---
[facility] CARDIOLOGY PROGRESS NOTE Date Patient Seen: Jun 07, 2024 Time of Visit: 11:52 Interval History: This is a 68-year-old white female with a past medical history of hyperlipidemia, recently diagnosed type 2 diabetes who was sent from the office of Dr. Kaelyn Parra after the patient was found to be in atrial fibrillation with rapid ventricular response at her office. The patient reports that she had a routine 4 month follow-up with Dr. Parra on the day of admission. She was noted to have a rapid heart rate in the office and an EKG demonstrated atrial fibrillation with RVR and was triaged to the hospital for further assessment. She denied any palpitations, exertional fatigue, exertional dyspnea the day of the office visit, but in the ER she did report some palpitations and feeling jittery. She was initiated on management with metoprolol and continued to have heart rates into the 120-130 beat per minute range on 06/05/2024. She received digoxin 250 mcg IV x 2 doses on 06/05/2024 and metoprolol was scheduled at 50 mg p.o. q.8 hours. Overnight into 06/06/2024, she had episodes of atrial fibrillation with slow ventricular response likely FX of the added digoxin. Metoprolol tartrate was reduced to 50 mg p.o. b.i.d. and overnight her heart rate has been maintaining in the 90-100 beat per minute range, she had a transient episode of 146. She has been up ambulating in the castro this morning with a heart rate 90 to 94 atrial fibrillation. She offers no other complaints today. A 2D echocardiogram on has demonstrated an LVEF of 50-55%, [id number] MR and moderate TR. Physical Examination: GENERAL: No acute distress. HEAD: Normal with no signs of head trauma. EYES: PERRLA, EOMI, conjunctiva and sclera normal. NECK: Supple without JVD. There is no tenderness, lymphadenopathy, or masses. No thyromegaly. Normal carotid upstrokes without bruits. LUNGS: Clear breath sounds bilaterally. No wheezes, or rhonchi. HEART: Irregularly irregular underlying rhythm with normal heart rate.Normal S1 and S2 without murmurs, gallop or rub. VASC: Peripheral pulses +2 bilaterally. EXT: No clubbing, cyanosis or edema. NEURO: Awake, alert, and oriented x3. No focal neurological deficits noted. Laboratory: Chemistry Labs: Test 06/07/24 10:29 06/06/24 05:09 06/06/24 03:22 Range/Units Whole Blood Glucose 122 H 70-110 MG/DL Bedside Glucose Comment Notified Nurse Sodium Level 136 136-145 mmol/L Potassium Level 4.3 3.5-5.1 mmol/L Chloride Level 104 101-111 mmol/L Carbon Dioxide Level 29 21-32 mmol/L Blood Urea Nitrogen 32 H 7-18 mg/dL Creatinine 0.8 0.5-1.0 mg/dL Glomerular Filtration Rate Calc 80 >90 mL/min Random Glucose 152 H 70-105 mg/dL Total Calcium 8.8 8.5-10.1 mg/dL Diagnostics / Radiology: 2D echocardiogram 06/04/2024: Conclusion LVEF is 50-55%. Mitral regurgitation is mild to moderate. There is moderate tricuspid valve regurgitation noted. Impression and Plan: Atrial fibrillation with rapid ventricular response of uncertain duration CHADs VASc stroke risk score of 3: Normal LV systolic function with an LVEF of 50-55% and [id number] MR and moderate TR by 2D echocardiogram 06/04/2024: -continue metoprolol tartrate 50 mg p.o. b.i.d. -avoid digoxin -continue Eliquis anticoagulation 5 mg p.o. b.i.d. initiated 06/04/2024 -the patient was primarily asymptomatic for any significant palpitations, dizzin ess, near-syncope or syncope or exertional fatigue rate dyspnea -continue efforts at rate control and anticoagulation and consider attempted direct current cardioversion in 3-4 weeks as an outpatient -obtain a 3 day outpatient mobile media monitor after discharge to assess adequacy of rate control and follow-up with Dr. Martín abraham for the results in 2 weeks -cleared for discharge home from cardiology standpoint on current drug regimen Comorbidities: Hyperlipidemia Type 2 diabetes mellitus PHYSICIAN ATTESTATION OF PHYSICIAN SUPERVISOR PARTIAL DENTURE DEPARTMENT DOCUMENTATION: I attest that I was physically present for the montalvo portions of the service and evaluated the patient with the Physician Supervisor [employer], and I reviewed and discussed the case with the Physician Supervisor [employer] and made modifications to the Physician Supervisor [employer]'s findings and plans of care as documented above LEIA PARK Jun 07, 2024 11:56 EDD MARTINEZ MD Jun 07, 2024 16:22
[2024-06-07] MEDS ORDERED: METO50TA18 PO (11:59)
[2024-06-07] MEDS ORDERED: APIX5TAB PO (11:59)
--- NOTE | 2024-06-07 14:08 | DS ---
Discharge Summary Hospital Course Summary: 68-year-old female admitted from her family practice doctors office with AFib with RVR. She was recently diagnosed with type 2 diabetes for which she takes metformin 1 g p.o. twice daily. She also takes a cholesterol her statin medication. She was started on metoprolol the dose of which had to be reduced as she had lower heart rates down to the 40s and this was reduced to 50 mg twice daily metoprolol tartrate. She was also given some IV doses of digoxin. On the day of discharge patient was asymptomatic had been walking around without chest pain or shortness for breath. 2D echo had been done which showed an EF of 50-55% [id number] mitral regurg and moderate tricuspid regurg. She will follow up tomorrow and obtain a three day Holter monitor in about three or four weeks' time DC cardioversion may be attempted by Dr. Esteves at [facility] cardiology. On the day of discharge patient was in no acute distress vital signs were stable she was afebrile HEENT: PERRLA, EOMI Neck: Supple Lungs: Clear to auscultation bilaterally Cardiovascular: Irregularly irregular rate controlled no murmurs rubs or gallops Abdomen: Soft, nontender/nondistended, positive bowel sounds no rebound or guarding Extremities: Without clubbing cyanosis or edema Neurologic nonfocal Psychiatric: Euthymic Bankman(s): Cardiology [facility] heart [facility] Procedure(s): 2D echo Assessment/Plan: ASSESSMENT: New onset paroxysmal atrial fibrillation with RVR POA CHADSVASC of 3 Hyperlipidemia History of diabetes mellitus type 2 Hypomagnesemia, resolved Protein calorie malnutrition PLAN: The patient remains admitted on medical surgical floor under telemetry monitoring. New onset paroxysmal atrial fibrillation with RVR POA CHADSVASC of 3 * Discontinued Heparin GTT and Continue Eliquis 5 mg PO Q12 daily. * Metoprolol 50 mg was titrated to TID per cardiology recommendations * The patient is received Digoxin 500 mcg loading dose and scheduled to receive Digoxin 250 mcg at 2:00 PM and 8:00 PM today. * Keep the Potassium more than 4.0 and Magnesium more than 2.0. * Echocardiogram showed LVEF is 50-55% with intermediate diastolic dysfunction, mild to moderate mitral regurgitation and moderate tricuspid valve regurgitation noted. * Continue under telemetry monitoring * Follow cardiology recommendations. Replace electrolytes per protocol Insulin sliding scale for hyperglycemia Hypoglycemia protocol Bench Scientist consult were made for protein calorie malnutrition. Recommendations are provided under the notes section. Recommendations appreciated. Home medications were reconciled and resumed. AM labs: BMP, Digoxin Further orders per hospitalization course. Discharge Instructions: Metoprolol tartrate 50 mg twice daily, Eliquis 5 mg twice daily, continue statin and metformin at previous dosage. Home Medications: Reported Medications Metformin HCl (Metformin HCl) 1,000 Mg Tablet, 1 TAB PO BIDMEALS 06/03/24 Atorvastatin Calcium (Atorvastatin Calcium) 10 Mg Tablet, 1 TAB PO HS 06/03/24 Time spent arranging discharge: 1-30 minutes RAISA HAYDEN MD Jun 07, 2024 14:08
--- NOTE | 2024-06-07 14:45 | NUR ---
DISCHARGE PATIENT HAS BEEN DISCHARGED HOME. PIV REMOVED. PRESSURE GAUZE AND TAPE APPLIED TO SITE. TELE MONITOR REMOVED. PATIENT VERBALIZES UNDERSTANDING OF DISCHARGE PAPER WORK. SPOKE WITH MS. VIVIAN NP REGARDING HEART MONITOR FOR HOME. SHE STATES PATIENT IS OKAY TO GO HOME WITHOUT IT AND CAN FOLLOW UP WITH STR TOMORROW 06/08/24. PATIENT HAS BEEN MADE AWARE. ANY NEW PRESCRIPTIONS HAVE BEEN SENT TO PATIENT'S PREFERRED PHARMACY. SISTER HERE TO PICK PATIENT UP, PATIENT WHEELED DOWN TO PRIVATE AUTOMOBILE, ACCOMPANIED BY SOCIAL DIRECTOR.
== END 2024-06-07 14:40 | disposition home or self-care (01) | DRG 309 ==
LOC: EDH 14:49 → EDHIP 17:24 → 4DH 20:19
PROVIDERS: ADMIT Internal Medicine; ATTEND Internal Medicine
DX: I48.0 Paroxysmal atrial fibrillation (principal); E46 Unspecified protein-calorie malnutrition; Z68.1 Body mass index [BMI] 19.9 or less, adult; E78.5 Hyperlipidemia, unspecified; I10 Essential (primary) hypertension; I08.1 Rheumatic disorders of both mitral and tricuspid valves; E11.65 Type 2 diabetes mellitus with hyperglycemia; E83.42 Hypomagnesemia; Z79.84 Long term (current) use of oral hypoglycemic drugs; Z79.899 Other long term (current) drug therapy
CPT/HCPCS: 36415; 80048; 80053; 80162; 82306; 82607; 82948; 83036; 83735; 83880; 84145; 84443; 84484; 84590; 85025; 85610; 85730; 93005; 93306; 96374; 99285; G0378; J1160; J1644; J1815; J3475; J3490